=== PATIENT | male | born 2000 | race Hispanic/Latino ===

== ENCOUNTER 2020-06-20 00:11 | Emergency (ER) | payer SELFPAY ==
--- NOTE | 2020-06-20 02:18 | ER ---
Nurse's Notes [facility] Name: Dawson Cabezas Age: 20 yrs Sex: Male : 2000 Arrival Date: 06/20/2020 Time: 00:16 Bed Waiting Private MD: Diagnosis: Presentation: 06/20 01:59 Chief complaint: Patient states: Chest tightness that began last night, reports having sg shortness of breath. Coronavirus screen: Client denies travel out of the [place] in the last 14 days. Ebola Screen: Patient negative for fever greater than or equal to 101.5 degrees Fahrenheit, and additional compatible Ebola Virus Disease symptoms Patient denies exposure to infectious person. Patient denies travel to an Ebola-affected area in the 21 days before illness onset. No symptoms or risks identified at this time. Initial Sepsis Screen: Does the patient meet any 2 criteria? No. Patient's initial sepsis screen is negative. Does the patient have a suspected source of infection? No. Patient's initial sepsis screen is negative. Risk Assessment: Do you want to hurt yourself or someone else? Patient reports no desire to harm self or others. Onset of symptoms was June 20, 2020. Care prior to arrival: None. 01:59 Acuity: MARIA INES 4 sg 01:59 Method Of Arrival: Ambulatory Historical: - Allergies: 02:00 No Known Allergies; ED Course: 00:16 Patient arrived in ED. ag3 01:59 Triage completed. sg 01:59 Arm band placed on. sg 02:05 Rigo Edmondson MD is Attending Physician. suri Administered Medications: No medications were administered Outcome: 02:17 Patient left the ED. tt3 Signatures: Gerardo Goins, RN Rigo Bee MD MD cha Gomez, Alice ag3 Mike Leahy tt3
== END 2020-06-20 02:17 | disposition left against medical advice (07) ==
LOC: ER 00:11
DX: Z53.21 Procedure and treatment not carried out due to patient leaving prior to being seen by health care provider (principal)
CPT/HCPCS: 99281

== ENCOUNTER 2021-02-09 20:21 | Emergency (ER) | payer SELFPAY ==
--- OUTSIDE RECORDS SUMMARY | 2021-02-09 20:24 | XMS REPORT | Continuity of Care Document ---
:2000 Author Organization [facility] t Address [address] [place] [address] Care Team Providers Name Role Phone Unavailable Unavailable Unavailable Payers Payer Name Policy Type Policy Number Effective Date Expiration Date S ource Problems This patient has no known problems. Allergies, Adverse Reactions, Alerts Allergy Allergy Status Severity Reaction(s) Onset Inactive Treating Comm ents Source Name Type Date Date Clinician No Known DA Active U 2018-0 [facility] Allergie 01-25 Clear s 00:00: Suresh 00 [facility] No Known DA Active U 2011-0 [facility] All[facility]ie 8-12 [facility] Medications This patient has no known medications. Procedures This patient has no known procedures. Results Test Description Test Time Test Comments Results Result Comments Source HEPATIC FUNCTION PANEL 2019-04-05 07:01:00 Test Item Value Reference Range Interpretation Comme nts TOTAL PROTEIN (test code = 7.8 g/dL 6.4-8.2 N P erformed by: LUZ Villanueva PROT) [id number], [place], [place] [address]Urzmirz sly reported result: 7.8 g/dLEdited by: SHON on 04/05/19:622845 0701: DICKSON previously repo rted as: 7.8 g/dL ALBUMIN (test code = ALB) 3.70 g/dL 3.4-5.0 N BILIRUBIN TOTAL (test code 0.4 MG/DL <1.5 N = BILT) BILIRUBIN DIRECT (test 0.10 MG/DL 0.0-0.30 N code = BILD) BILIRUBIN INDIRECT (test 0.30 MG/DL code = BILIND) SGOT/AST (test code = AST) 21 IUnit/L 15-37 N SGPT/ALT (test code = ALT) 39 IUnit/L 15-65 N ALKALINE PHOSPHATASE TOTAL 101 IUnit/L 60-350 N (test code = ALKP) [id number] 07:01:00 Test Item Value Reference Range Interpretation Comments LIPASE (test code = LIP) 120 IUnit/L 73-393 N HEPATIC FUNCTION [id number] 07:01:00 Test Item Value Reference Range Interpretation Comments TOTAL PROTEIN (test 7.8 g/dL 6.4-8.2 N Performe d by: [facility] code = PROT) [place] [address] [place], [place] [address]Pvyawuwovr reported result : 7.8 g/dLEdited by: SHON on 04/05/19:841773 9 0701: T.PROT previously repo rted as: 7.8 g/dL ALBUMIN (test code = 3.70 g/dL 3.4-5.0 N ALB) BILIRUBIN TOTAL (test 0.4 MG/DL <1.5 N code = BILT) BILIRUBIN DIRECT (test 0.10 MG/DL 0.0-0.30 N code = BILD) BILIRUBIN INDIRECT 0.30 MG/DL (test code = BILIND) SGOT/AST (test code = 21 IUnit/L 15-37 N AST) SGPT/ALT (test code = 39 IUnit/L 15-65 N ALT) ALKALINE PHOSPHATASE 101 IUnit/L 60-350 N TOTAL (test code = ALKP) [id number] 07:01:00 Test Item Value Reference Range Interpretation Comments LIPASE (test code = LIP) 120 IUnit/L 73-393 N HEPATIC FUNCTION [id number] 06:59:00 Test Item Value Reference Range Interpretation Comments TOTAL PROTEIN (test code = PROT) 7.8 g/dL 6.4-8.2 N ALBUMIN (test code = ALB) 3.70 g/dL 3.4-5.0 N BILIRUBIN TOTAL (test code = 0.4 MG/DL <1.5 N BILT) BILIRUBIN DIRECT (test code = 0.10 MG/DL 0.0-0.30 N BILD) BILIRUBIN INDIRECT (test code = 0.30 MG/DL BILIND) SGOT/AST (test code = AST) 21 IUnit/L 15-37 N SGPT/ALT (test code = ALT) 39 IUnit/L 15-65 N ALKALINE PHOSPHATASE TOTAL (test 101 IUnit/L 60-350 N code = ALKP) [id number] 06:59:00 Test Item Value Reference Range Interpretation Comments LIPASE (test code = LIP) 120 IUnit/L 73-393 N HEPATIC FUNCTION [id number] 06:59:00 Test Item Value Reference Range Interpretation Comments TOTAL PROTEIN (test code = PROT) 7.8 g/dL 6.4-8.2 N ALBUMIN (test code = ALB) 3.70 g/dL 3.4-5.0 N BILIRUBIN TOTAL (test code = 0.4 MG/DL <1.5 N BILT) BILIRUBIN DIRECT (test code = 0.10 MG/DL 0.0-0.30 N BILD) BILIRUBIN INDIRECT (test code = 0.30 MG/DL BILIND) SGOT/AST (test code = AST) 21 IUnit/L 15-37 N SGPT/ALT (test code = ALT) 39 IUnit/L 15-65 N ALKALINE PHOSPHATASE TOTAL (test 101 IUnit/L 60-350 N code = ALKP) [id number] 06:59:00 Test Item Value Reference Range Interpretation Comments LIPASE (test code = LIP) 120 IUnit/L 73-393 N CBC W/AUTO [id number] 14:59:00 Test Item Value Reference Range Interpretation Comments WHITE BLOOD CELL (test code = WBC) 7.60 k/mm3 4.00-12.00 N RED BLOOD CELL (test code = RBC) 5.51 M/uL 4.00-5.60 N HEMOGLOBIN (test code = HGB) 17.0 GM/DL 12.5-16.9 H HEMATOCRIT (test code = HCT) 48.1 % 40.0-54.0 N MEAN CELL VOLUME (test code = MCV) 87.3 fL 81.0-99.0 N MEAN CELL HGB (test code = MCH) 30.9 pg 27.0-31.0 N MEAN CELL HGB CONCETRATION (test 35.3 GM/DL 33.0-37.0 N code = MCHC) RED CELL DISTRIBUTION WIDTH CV 13.7 % 11.5-14.5 N (test code = RDW) RED CELL DISTRIBUTION WIDTH SD 42.9 % 37.0-54.0 N (test code = RDW-SD) PLATELET COUNT (test code = PLT) 212 K/mm3 150-400 N NEUTROPHIL % (test code = NT%) 67.0 % 34.0-64.0 H LYMPHOCYTE % (test code = LY%) 26.4 % 25.0-45.0 N MIXED % (test code = MX%) 6.6 % 3.0-15.0 N NEUTROPHIL # (test code = NT#) 5.1 K/uL 1.8-7.6 N LYMPHOCYTE # (test code = LY#) 2.0 K/uL 1.0-3.8 N MIXED # (test code = MX#) 0.5 k/mm3 0.1-0.8 N - CT ABD PELVIS [id number] 13:57:00 Name: VICTORIANO VILLASENOR Alsey FSED : 2000 Age/S: 18 / M Unit #: [id number] Loc: [place], [place] Phys: Nohemy Ac MD Acct: [id number] Dis Date: Status: REG ER PHONE #: Exam Date: 03/27/2019 1331 FAX #: Reason: RLQ pain EXAMS: CPTCODE: [id number] CT ABD PELVIS W/CONT 95178 EXAM: CT ABDOMEN AND PELVIS WITH CONTRAST DATE: 03/27/2019 12:56 PM : 2000; Age: 18 years y/o Male INDICATION: RLQ pain COMPARISON: None. TECHNIQUE: Volumetric CT of the abdomen and pelvis is acquired following the intravenous administration of contrast. Axial, coronal and sagittal images are provided. IV contrast: 100 mL Isovue Enteric contrast: None. DLP: 1163 mGy-cm CT imaging performed at this location utilizes radiation dose optimization techniques which include one or more of the following: - Automated exposure control -Adjustment of the mA and/or kV according to patient size -Use of iterative reconstruction technique FINDINGS: Lower thorax: Clear. Liver: Normal. Gallbladder: No calcified stones or wall thickening. Adrenals: Normal. Kidneys and ureters: Normal. Spleen: Normal. Pancreas: Normal. Visualized Gastrointestinal tract: Stomach is normal. No significant small bowel dilatation. Appendix is normal. Fatty proliferation is noted involving the hepatic flexure colonic wall with adjacent haziness of the fat. No bowel obstruction. Peritoneum, mesentery and retroperitoneum: Tiny mesenteric nodes. No drainable abscess. No ascites. PAGE 1 Signed Report (CONTINUED) Name: VICTORIANO VILLASENOR Alsey FSED : 2000 Age/S: 18 / M Unit #: [id number] Loc: [place], [place] Phys: Nohemy Ac MD Acct: [id number] Dis Date: Status: REG ER PHONE #: Exam Date: 03/27/2019 133 FAX #: Reason: RLQ pain EXAMS: CPT CODE: [id number] CT ABD PELVIS W/CONT 81516 <Continued> Reproductive organs: Prostate and seminal vesicles are unremarkable. Bladder: Normal. Soft tissues: Normal. Bones: No acute abnormality. Moderate disc space narrowing at T10- T11 level. IMPRESSION: 1. Fatty proliferation is noted involving the hepatic flexure colonic wallwith adjacent haziness of the fat. Findings may represent subtle acute on chronic inflammatory process involving the hepatic flexure. 2. Normal appendix. 3. Moderate disc space narrowing at T10-T11 level. SL: [id number] at 1357 Reported and signed by: Simon Burk D.O. CC: Nohemy Ac MD Technologist:RT Socorro(R)(CT) CTDI: DLP: Trnscb Date/Time: 03/27/2019 (1357) [email or web address] Orig Print D/T: S: 03/27/2019 (1400) PAGE 2 Signed ReportCREATINALEXI [id number] 12:54:00 Test Item Value Reference Range Interpretation Comments CREATININE ABG (test code = CREAABG) mg/dL 0.8-1.3 [id number] 12:54:00 Test Item Value Reference Range Interpretation Comments HEMOGLOBIN (test code = HGB/ABG) G/DL 12.5-16.9 [id number] 12:54:00 Test Item Value Reference Range Interpretation Comments HEMATOCRIT (test code = HCT/ABG) % 37.5-50.7 POC IONIZED [id number] 12:54:00 Test Item Value Reference Range Interpretation Comments POC IONIZED CALCIUM (test code = MMOL/L 1.12-1.32 POCCA) POC [id number] 12:54:00 Test Item Value Reference Range Interpretation Comments POC GLUCOSE (test code = POCGLU) MG/DL 70-110 [id number] 12:54:00 Test Item Value Reference Range Interpretation Comments SODIUM (test code = NA/ABG) 143 MEQ/L 134-147 N [id number] 12:54:00 Test Item Value Reference Range Interpretation Comments POTASSIUM (test code = K/ABG) 3.7 MEQ/L 3.4-5.0 N [id number] 12:54:00 Test Item Value Reference Range Interpretation Comments CHLORIDE (test code = CL/ABG) MEQ/L 100-108 CREATININE [id number] 12:54:00 Test Item Value Reference Range Interpretation Comments CREATININE ABG (test code = CREAABG) mg/dL 0.8-1.3 [id number] 12:54:00 Test Item Value Reference Range Interpretation Comments HEMOGLOBIN (test code = HGB/ABG) G/DL 12.5-16.9 [id number] 12:54:00 Test Item Value Reference Range Interpretation Comments HEMATOCRIT (test code = HCT/ABG) % 37.5-50.7 POC IONIZED [id number] 12:54:00 Test Item Value Reference Range Interpretation Comments POC IONIZED CALCIUM (test code = MMOL/L 1.12-1.32 POCCA) POC [id number] 12:54:00 Test Item Value Reference Range Interpretation Comments POC GLUCOSE (test code = POCGLU) MG/DL 70-110 [id number] 12:54:00 Test Item Value Reference Range Interpretation Comments SODIUM (test code = NA/ABG) 143 MEQ/L 134-147 N [id number] 12:54:00 Test Item Value Reference Range Interpretation Comments POTASSIUM (test code = K/ABG) 3.7 MEQ/L 3.4-5.0 N [id number] 12:54:00 Test Item Value Reference Range Interpretation Comments CHLORIDE (test code = CL/ABG) MEQ/L 100-108 CREATININE [id number] 12:54:00 Test Item Value Reference Range Interpretation Comments CREATININE ABG (test code = CREAABG) mg/dL 0.8-1.3 [id number] 12:54:00 Test Item Value Reference Range Interpretation Comments HEMOGLOBIN (test code = HGB/ABG) G/DL 12.5-16.9 [id number] 12:54:00 Test Item Value Reference Range Interpretation Comments HEMATOCRIT (test code = HCT/ABG) % 37.5-50.7 POC IONIZED [id number] 12:54:00 Test Item Value Reference Range Interpretation Comments POC IONIZED CALCIUM (test code = 1.22 MMOL/L 1.12-1.32 N POCCA) POC [id number] 12:54:00 Test Item Value Reference Range Interpretation Comments POC GLUCOSE (test code = POCGLU) MG/DL 70-110 [id number] 12:54:00 Test Item Value Reference Range Interpretation Comments SODIUM (test code = NA/ABG) 143 MEQ/L 134-147 N [id number] 12:54:00 Test Item Value Reference Range Interpretation Comments POTASSIUM (test code = K/ABG) 3.7 MEQ/L 3.4-5.0 N [id number] 12:54:00 Test Item Value Reference Range Interpretation Comments CHLORIDE (test code = CL/ABG) MEQ/L 100-108 CREATININE [id number] 12:54:00 Test Item Value Reference Range Interpretation Comments CREATININE ABG (test code = CREAABG) mg/dL 0.8-1.3 [id number] 12:54:00 Test Item Value Reference Range Interpretation Comments HEMOGLOBIN (test code = HGB/ABG) G/DL 12.5-16.9 [id number] 12:54:00 Test Item Value Reference Range Interpretation Comments HEMATOCRIT (test code = HCT/ABG) % 37.5-50.7 POC IONIZED [id number] 12:54:00 Test Item Value Reference Range Interpretation Comments POC IONIZED CALCIUM (test code = 1.22 MMOL/L 1.12-1.32 N POCCA) POC [id number] 12:54:00 Test Item Value Reference Range Interpretation Comments POC GLUCOSE (test code = POCGLU) 113 MG/DL 70-110 H [id number] 12:54:00 Test Item Value Reference Range Interpretation Comments SODIUM (test code = NA/ABG) 143 MEQ/L 134-147 N [id number] 12:54:00 Test Item Value Reference Range Interpretation Comments POTASSIUM (test code = K/ABG) 3.7 MEQ/L 3.4-5.0 N [id number] 12:54:00 Test Item Value Reference Range Interpretation Comments CHLORIDE (test code = CL/ABG) MEQ/L 100-108 CREATININE [id number] 12:54:00 Test Item Value Reference Range Interpretation Comments CREATININE ABG (test code = CREAABG) mg/dL 0.8-1.3 [id number] 12:54:00 Test Item Value Reference Range Interpretation Comments HEMOGLOBIN (test code = HGB/ABG) G/DL 12.5-16.9 [id number] 12:54:00 Test Item Value Reference Range Interpretation Comments HEMATOCRIT (test code = HCT/ABG) 49 % 37.5-50.7 N POC IONIZED [id number] 12:54:00 Test Item Value Reference Range Interpretation Comments POC IONIZED CALCIUM (test code = 1.22 MMOL/L 1.12-1.32 N POCCA) POC [id number] 12:54:00 Test Item Value Reference Range Interpretation Comments POC GLUCOSE (test code = POCGLU) 113 MG/DL 70-110 H [id number] 12:54:00 Test Item Value Reference Range Interpretation Comments SODIUM (test code = NA/ABG) 143 MEQ/L 134-147 N [id number] 12:54:00 Test Item Value Reference Range Interpretation Comments POTASSIUM (test code = K/ABG) 3.7 MEQ/L 3.4-5.0 N [id number] 12:54:00 Test Item Value Reference Range Interpretation Comments CHLORIDE (test code = CL/ABG) MEQ/L 100-108 CREATININE [id number] 12:54:00 Test Item Value Reference Range Interpretation Comments CREATININE ABG (test code = CREAABG) mg/dL 0.8-1.3 [id number] 12:54:00 Test Item Value Reference Range Interpretation Comments HEMOGLOBIN (test code = HGB/ABG) 16.6 G/DL 12.5-16.9 N [id number] 12:54:00 Test Item Value Reference Range Interpretation Comments HEMATOCRIT (test code = HCT/ABG) 49 % 37.5-50.7 N POC IONIZED [id number] 12:54:00 Test Item Value Reference Range Interpretation Comments POC IONIZED CALCIUM (test code = 1.22 MMOL/L 1.12-1.32 N POCCA) POC [id number] 12:54:00 Test Item Value Reference Range Interpretation Comments POC GLUCOSE (test code = POCGLU) 113 MG/DL 70-110 H [id number] 12:54:00 Test Item Value Reference Range Interpretation Comments SODIUM (test code = NA/ABG) 143 MEQ/L 134-147 N [id number] 12:54:00 Test Item Value Reference Range Interpretation Comments POTASSIUM (test code = K/ABG) 3.7 MEQ/L 3.4-5.0 N [id number] 12:54:00 Test Item Value Reference Range Interpretation Comments CHLORIDE (test code = CL/ABG) 106 MEQ/L 100-108 N CREATININE [id number] 12:54:00 Test Item Value Reference Range Interpretation Comments CREATININE ABG (test code = CREAABG) mg/dL 0.8-1.3 [id number] 12:54:00 Test Item Value Reference Range Interpretation Comments HEMOGLOBIN (test code = HGB/ABG) 16.6 G/DL 12.5-16.9 N [id number] 12:54:00 Test Item Value Reference Range Interpretation Comments HEMATOCRIT (test code = HCT/ABG) 49 % 37.5-50.7 N POC IONIZED [id number] 12:54:00 Test Item Value Reference Range Interpretation Comments POC IONIZED CALCIUM (test code = 1.22 MMOL/L 1.12-1.32 N POCCA) POC [id number] 12:54:00 Test Item Value Reference Range Interpretation Comments POC GLUCOSE (test code = POCGLU) 113 MG/DL 70-110 H [id number] 12:54:00 Test Item Value Reference Range Interpretation Comments SODIUM (test code = NA/ABG) 143 MEQ/L 134-147 N [id number] 12:54:00 Test Item Value Reference Range Interpretation Comments POTASSIUM (test code = K/ABG) 3.7 MEQ/L 3.4-5.0 N [id number] 12:54:00 Test Item Value Reference Range Interpretation Comments CHLORIDE (test code = CL/ABG) 106 MEQ/L 100-108 N CREATININE [id number] 12:54:00 Test Item Value Reference Range Interpretation Comments CREATININE ABG (test code = 0.9 mg/dL 0.8-1.3 N CREAABG) [id number] 12:54:00 Test Item Value Reference Range Interpretation Comments HEMOGLOBIN (test code = HGB/ABG) 16.6 G/DL 12.5-16.9 N [id number] 12:54:00 Test Item Value Reference Range Interpretation Comments HEMATOCRIT (test code = HCT/ABG) 49 % 37.5-50.7 N POC IONIZED [id number] 12:54:00 Test Item Value Reference Range Interpretation Comments POC IONIZED CALCIUM (test code = 1.22 MMOL/L 1.12-1.32 N POCCA) POC [id number] 12:54:00 Test Item Value Reference Range Interpretation Comments POC GLUCOSE (test code = POCGLU) 113 MG/DL 70-110 H [id number] 12:54:00 Test Item Value Reference Range Interpretation Comments SODIUM (test code = NA/ABG) 143 MEQ/L 134-147 N [id number] 12:54:00 Test Item Value Reference Range Interpretation Comments POTASSIUM (test code = K/ABG) MEQ/L 3.4-5.0 [id number] 12:54:00 Test Item Value Reference Range Interpretation Comments CHLORIDE (test code = CL/ABG) MEQ/L 100-108 - XR CHEST 2 [id number] 03:36:00 FAX: Gerardo Schroeder MD [phone] [place]: St: REG Name: VICTORIANO VILLASENOR [facility] : 2000 Age/S: 18/M [address] [facility] Unit#: [id number] Loc: [address] Phys: [place] [id number] Acct: [id number] Dis Date: Status: REG ER PHONE #: [phone] Exam Date: 01/25/2019 031 FAX #: [phone] Reason: chest pain EXAMS: CPT CODE: [id number] XR CHEST 2 V [id number] EXAM: - XR CHEST 2 V HISTORY: Chest pain. COMPARISON: October 31, 2017. FINDINGS: PA and lateral view of the chest is provided. Heart size and vascularity are within normal limits. The lungs are clear of focal consolidation. No effusion, pneumothorax, or acute osseous abnormality. IMPRESSION: No radiographic evidence of acute cardiopulmonary process. at 0336 Reported and signed by: Alvaro Carcamo M.D. CC: Gerardo Schroeder MD Technologist: MECHE DEL TORO Trnscrd Date/Time/By: 01/25/2019 (0336) : By: [email or web address] PAGE 1 Signed Report FAX: Gerardo Schroeder MD [phone] [place]: St: REG ---- Name: VICTORIANO VILLASENOR [facility] : 2000 Age/S: 18/M [address] [email or web address] Unit #: [id number] Loc: E.ERS2 [place], [place] Phys: Gerardo Schroeder [place] [id number]: [id number] Dis Date: Status: REG ER PHONE #: [phone] Exam Date: 01/25/2019 0311 FAX #: [phone] Reason: chest pain EXAMS: CPT CODE: [id number] XR CHEST 2 V [id number] <Continued> Orig Print D/T: S: 01/25/2019 (0339) PAGE 2 Signed ReportDRUGS OF ABUSE SCREEN [id number] 00:57:00 Test Item Value Reference Range Interpretation Comments URN COCAINE (test code NEGATIVE NEGATIVE Cocai ne cut-off = COCAURN) concentration: 300 ng/mL URN CANNABINOIDS (test NEGATIVE NEGATIVE Canna binoids cut-off code = CANNABURN) concentrat ion: 50 ng/mL URN AMPHETAMINE (test NEGATIVE NEGATIVE Amphet amine cut-off code = AMPHETURN) concentrat ion: 1000 ng/mL URN BARBITURATE (test NEGATIVE NEGATIVE Barbit urate cut-off code = BARBITURN) concentrat ion: 200 ng/mL URN BENZODIAZEPINE NEGATIVE NEGATIVE Benzodiaz epine cut-off (test code = BENZOURN) constantino ntration: 200 ng/mL URN OPIATES (test code NEGATIVE NEGATIVE Opiat es cut-off = OPIATURN) concentration: 200 ng/mL URN PHENCYCLIDINE (PCP) NEGATIVE NEGATIVE Phen cyclidine(PCP) (test code = PHENCURN) cut-o ff concentration: 25 ng/ml URN METHADONE (test NEGATIVE NEGATIVE Methadon e cut-off code = METHAURN) concentrati on: 300 ng/mL URINALYSIS [id number] 00:40:00 Test Item Value Reference Range Interpretation Comments UA COLOR (test code = COLU) YELLOW UA APPEARANCE (test code = CLEAR APPU) UA GLUCOSE DIPSTICK (test NORMAL mg/dl NORMAL code = DGLUU) UA BILIRUBIN DIPSTICK (test NEGATIVE mg/dL NEGATIVE code = BILU) UA KETONE DIPSTICK (test 15 mg/dl mg/dl NEGATIVE A code = KETU) UA SPECIFIC GRAVITY (test 1.020 1.000-1.030 code = SGU) UA BLOOD DIPSTICK (test NEGATIVE Robert/micL NEGATIVE code = RAMSES) UA PH DIPSTICK (test code = 5.0 5.0-9.0 ЕЛЕНА) UA PROTEIN DIPSTICK (test 15 mg/dl mg/dl NEGATIVE A code = PROU) UA UROBILINIOGEN DIPSTICK NORMAL mg/dl NORMAL (test code = URO) UA NITRITE DIPSTICK (test NEGATIVE NEGATIVE code = JONELLE) UA LEUKOCYTE ESTERASE NEGATIVE Serge/micL NEGATIVE DIPSTICK (test code = LEUU) UA WBC (test code = WBCU) 0-3 WBC/HPF NONE UA RBC (test code = RBCU) 0-2 RBC/HPF 0-3 UA EPITHELIAL CELLS (test 0-3 EPI/HPF 0-3 code = EPIU) UA BACTERIA (test code = FEW NONE BACU) UA MUCUS (test code = MUCU) 1+ URINALYSIS [id number] 00:32:00 Test Item Value Reference Range Interpretation Comments UA COLOR (test code = COLU) YELLOW UA APPEARANCE (test code = CLEAR APPU) UA GLUCOSE DIPSTICK (test NORMAL mg/dl NORMAL code = DGLUU) UA BILIRUBIN DIPSTICK (test NEGATIVE mg/dL NEGATIVE code = BILU) UA KETONE DIPSTICK (test 15 mg/dl mg/dl NEGATIVE A code = KETU) UA SPECIFIC GRAVITY (test 1.020 1.000-1.030 code = SGU) UA BLOOD DIPSTICK (test NEGATIVE Robert/micL NEGATIVE code = RAMSES) UA PH DIPSTICK (test code = 5.0 5.0-9.0 ЕЛЕНА) UA PROTEIN DIPSTICK (test 15 mg/dl mg/dl NEGATIVE A code = PROU) UA UROBILINIOGEN DIPSTICK NORMAL mg/dl NORMAL (test code = URO) UA NITRITE DIPSTICK (test NEGATIVE NEGATIVE code = JONELLE) UA LEUKOCYTE ESTERASE NEGATIVE Serge/micL NEGATIVE DIPSTICK (test code = LEUU) UA WBC (test code = WBCU) WBC/HPF NONE UA RBC (test code = RBCU) RBC/HPF 0-3 UA EPITHELIAL CELLS (test EPI/HPF 0-3 code = EPIU) UA BACTERIA (test code = NONE BACU)
[2021-02-09 22:30] LABS: Absolute Lymphocytes (CBC) 3.5 K/uL (0.7-4.9); Basophils % 0.5 % (0-1.3); Hematocrit 41.2 % (39.6-49.0); Lymphocytes % 32.5 % (15.3-44.8); MPV 8.7 fL (7.6-11.3); RBC Red Blood Cell Count 4.78 M/uL (4.33-5.43)
[2021-02-09 22:36] LABS: Protime INR 1.09
[2021-02-09 22:51] LABS: ALT/SGPT 31 U/L (12-78); AST/SGOT 21 U/L (15-37); Alkaline Phosphatase 99 U/L (45-117); BUN Blood Urea Nitrogen 14 mg/dL (7-18); Bicarbonate 28 mmol/L (21-32); Bilirubin Direct < 0.1 mg/dL (0-0.2); Bilirubin Total 0.4 mg/dL (0.2-1.0); Glucose Level 89 mg/dL (74-106); Magnesium 2.1 mg/dL (1.8-2.4); Potassium 3.6 mmol/L (3.5-5.1); Protein, Total 7.9 g/dL (6.4-8.2); Sodium Level 141 mmol/L (136-145); Troponin (Emerg Dept Use Only) < 0.02 ng/mL (0.0-0.045)
[2021-02-09 23:21] LABS: NT PRO-BNP < 5 pg/mL (<125)
--- NOTE | 2021-02-10 00:29 | EDPHYS ---
Physician Documentation [facility] Name: Dawson Cabezas Age: 20 yrs Sex: Male : 2000 Arrival Date: 02/09/2021 Time: 20:24 Bed 17 Private MD: ED Physician Deshaun Ramos HPI: 02/10 00:20 This 20 yrs old Male presents to ER via Ambulatory with complaints of Chest pkl Pain, Neck Pain, >24Hrs Old, Shoulder Pain. 00:20 The patient or guardian reports chest pain that is located primarily in the substernal pkl area. Associated signs and symptoms: Pertinent positives: neck pain. The chest pain is described as dull. Historical: - Allergies: 02/09 22:06 No Known Allergies; kg - Home Meds: 22:06 None [Active]; kg - PMHx: 22:06 None; kg - PSHx: 22:06 double mastectomy; kg - Immunization history:: Adult Immunizations not up to date, Client reports having NOT received the Covid vaccine. - Social history:: Smoking status: Reported history of juuling and/or vaping. ROS: 02/10 00:20 Eyes: Negative for injury, pain, redness, and discharge, ENT: Negative for injury, pkl pain, and discharge. Neck: Positive for pain with movement. Cardiovascular: Positive for chest pain. Respiratory: Negative for cough, shortness of breath. Abdomen/GI: Negative for abdominal pain, nausea, vomiting, and diarrhea. Back: Negative for acute changes. : Negative for urinary symptoms. MS/extremity: Negative for acute changes. Skin: Negative for rash. Neuro: Negative for altered mental status, loss of consciousness. Exam: 00:20 Head/Face: Normocephalic, atraumatic. Eyes: Pupils equal round and reactive to light, pkl extra-ocular motions intact. Lids and lashes normal. Conjunctiva and sclera are non-icteric and not injected. Cornea within normal limits. Periorbital areas with no swelling, redness, or edema. ENT: Nares patent. No nasal discharge, no septal abnormalities noted. Tympanic membranes are normal and external auditory canals are clear. Oropharynx with no redness, swelling, or masses, exudates, or evidence of obstruction, uvula midline. Mucous membranes moist. 00:20 Neck: ROM/movement: pain, that is mild, with rotation to the left. 00:20 Chest/axilla: Exam negative for acute changes. 00:20 Cardiovascular: Rate: normal, Rhythm: regular. 00:20 ECG was reviewed by the Attending Physician. 00:20 Respiratory: the patient does not display signs of respiratory distress, Respirations: normal, Breath sounds: are clear throughout. 00:20 Abdomen/GI: Exam negative for acute changes. 00:24 Back: Exam negative for acute changes. pkl 00:24 : Exam negative for acute changes. 00:24 Musculoskeletal/extremity: Exam is negative for acute changes. 00:24 Skin: Exam negative for rash. 00:24 Neuro: Orientation: is normal, Mentation: is normal, Memory: is normal, Cranial nerves: grossly normal, Cerebellar function: is grossly normal, Motor: is normal, Sensation: is normal, Gait: is steady. Vital Signs: 02/09 22:04 Pulse 84; Resp 20; Temp 97.5(TE); Pulse Ox 100% on R/A; Weight 122.47 kg (R); Height 5 kg ft. 10 in. (177.80 cm); Pain 6/10; 02/10 00:38 BP 114 / 61; Pulse 88; Resp 20; Temp 98.5; Pulse Ox 99% on R/A; ms4 02/09 22:04 Body Mass Index 38.74 (122.47 kg, 177.80 cm) kg MDM: 00:00 Patient medically screened. pkl 00:25 Data reviewed: vital signs, nurses notes, lab test result(s), EKG, radiologic studies, pkl plain films. ED course: Discussed lab, EKG and CXR with patient. Advised to follow up with PCP in 2 to 3 days. Patient understood instructions. 02/09 22:09 Order name: Basic Metabolic Panel kg 02/09 22:09 Order name: CBC with Diff; Complete Time: 00:02 kg 02/09 22:09 Order name: LFT's; Complete Time: 00:02 kg 02/09 22:09 Order name: Magnesium; Complete Time: 00:02 kg 02/09 22:09 Order name: NT PRO-BNP; Complete Time: 00:02 kg 02/09 22:09 Order name: PT-INR; Complete Time: 00:02 kg 02/09 22:09 Order name: Troponin (emerg Dept Use Only); Complete Time: 00:02 kg 02/09 22:09 Order name: XRAY Chest (1 view) kg 02/09 22:09 Order name: EKG; Complete Time: 22:09 kg 02/09 22:09 Order name: Cardiac monitoring; Complete Time: 00:34 kg 02/09 22:09 Order name: EKG - Nurse/Tech; Complete Time: 22:09 kg 02/09 22:09 Order name: IV Saline Lock; Complete Time: 22:09 kg 09 22:09 Order name: Basic Metabolic Panel; Complete Time: 00:02 EDMS 09 22:09 Order name: Labs collected and sent; Complete Time: 00:34 kg 02/09 22:09 Order name: O2 Per Protocol; Complete Time: 00:34 kg 02/09 22:09 Order name: O2 Sat Monitoring; Complete Time: 00:34 kg Administered Medications: 00:39 Drug: Ketorolac 30 mg Route: IVP; Site: left antecubital; ms4 Disposition Summary: 02/10/21 00:28 Discharge Ordered Location: Home pkl Problem: new pkl Symptoms: have improved pkl Condition: Stable pkl Diagnosis - Chest pain. Neck pain pkl Followup: pkl - With: Private Physician - When: 2 - 3 days - Reason: Re-evaluation by your physician Discharge Instructions: - Discharge Summary Sheet pkl - Form - Excuse from Work, School, or Physical Activity wg Forms: - Medication Reconciliation Form pkl - Thank You Letter pkl - Antibiotic Education pkl - Prescription Opioid Use pkl Prescriptions: - Diclofenac Sodium 75 mg Oral tablet,delayed release (DR/EC) - take 1 tablet by ORAL route 2 times per day; 20 tablet; Refills: 0, Product pkl Selection Permitted Signatures: Dispatcher [employer] Deshaun Minor MD MD pkl Armida Issa, RN RN kg Gavi Abdalla RN RN ms4
--- NOTE | 2021-02-10 00:29 | ER ---
Nurse's Notes [facility] Name: Dawson Cabezas Age: 20 yrs Sex: Male : 2000 Arrival Date: 02/09/2021 Time: 20:24 Bed 17 Private MD: Diagnosis: Chest pain. Neck pain Presentation: 02/09 22:04 Chief complaint: Patient states: Woke up at 0700 and chest was hurting then an hour kg later left shoulder and neck hurting and chest, shoulder, and neck have been hurting ever since. Coronavirus screen: Vaccine status: Patient reports being unvaccinated. Client denies travel out of the [place] in the last 14 days. Ebola Screen: Patient negative for fever greater than or equal to 101.5 degrees Fahrenheit, and additional compatible Ebola Virus Disease symptoms Patient denies exposure to infectious person. Patient denies travel to an Ebola-affected area in the 21 days before illness onset. Initial Sepsis Screen: Does the patient meet any 2 criteria? Does the patient have a suspected source of infection? No. Patient's initial sepsis screen is negative. Risk Assessment: Do you want to hurt yourself or someone else? Patient reports no desire to harm self or others. Onset of symptoms was February 09, 2021 at 07:00. 22:04 Method Of Arrival: Ambulatory kg 22:04 Acuity: MARIA INES 4 kg Triage Assessment: 22:06 General: Appears in no apparent distress. Behavior is calm, cooperative, appropriate kg for age, quiet. Pain: Complains of pain in chest Pain currently is 7 out of 10 on a pain scale. at worst was 8 out of 10 on a pain scale. level that patient reports is acceptable is 3 out of 10 on a pain scale. Quality of pain is described as stabbing, squeezing. Cardiovascular: Chest pain is described as mild, quality is squeezing, is located in left anterior began 1 day ago episodes are continuous. Respiratory: No deficits noted. GI: No deficits noted. : No deficits noted. Derm: No deficits noted. Musculoskeletal: No deficits noted. Historical: - Allergies: 22:06 No Known Allergies; kg - Home Meds: 22:06 None [Active]; kg - PMHx: 22:06 None; kg - PSHx: 22:06 double mastectomy; kg - Immunization history:: Adult Immunizations not up to date, Client reports having NOT received the Covid vaccine. - Social history:: Smoking status: Reported history of juuling and/or vaping. Screenin/07 00:38 Abuse screen: Denies threats or abuse. Denies injuries from another. Nutritional ms4 screening: No deficits noted. Tuberculosis screening: No symptoms or risk factors identified. Fall Risk None identified. Assessment: 00:38 Pain: Pain does not radiate. Pain began suddenly. ms4 Vital Signs: 02/09 22:04 Pulse 84; Resp 20; Temp 97.5(TE); Pulse Ox 100% on R/A; Weight 122.47 kg (R); Height 5 kg ft. 10 in. (177.80 cm); Pain 11/13; 02/10 00:38 BP 114 / 61; Pulse 88; Resp 20; Temp 98.5; Pulse Ox 99% on R/A; ms4 02/09 22:04 Body Mass Index 38.74 (122.47 kg, 177.80 cm) kg ED Course: 02/09 20:24 Patient arrived in ED. cf2 22:06 Triage completed. kg 22:14 EKG done, by ED staff, reviewed by Deshaun Ramos MD. tt3 23:00 XRAY Chest (1 view) In Process Unspecified. EDMS 02/10 00:00 Deshaun Ramos MD is Attending Physician. pkl 00:34 Basic Metabolic Panel Sent. ms4 00:38 Patient has correct armband on for positive identification. satellite project site monitor on. ms4 00:39 No provider procedures requiring assistance completed. Patient maintains SpO2 ms4 saturation greater than 95% on room air. Administered Medications: 00:39 Drug: Ketorolac 30 mg Route: IVP; Site: left antecubital; ms4 Outcome: 00:28 Discharge ordered by . pkl 00:58 Discharged to home ambulatory. eb1 00:58 Condition: stable 00:58 Discharge instructions given to patient, Instructed on discharge instructions, Demonstrated understanding of follow-up care, medications, Prescriptions given X 1. 01:04 Patient left the ED. wr Signatures: Dispatcher [employer] EDMS Deshaun Ramos MD MD pkl Gwendolyn Vang RN RN eb1 Doe Kerr cf2 Mike Leahy tt3 Armida Issa RN RN kg Gavi Abdalla RN RN ms4 Estella Mcintosh wr
[2021-02-10] MEDS ORDERED: KETOROLAC 30 MG/ML INJ ONE (00:59)
[2021-02-10 01:10] VITALS: BP 114/61; TEMP 98.5; O2SAT 99
--- NOTE | 2021-02-10 07:32 | RAD REPORT ---
EXAM DESCRIPTION: RAD - Chest Single View - 02/09/2021 11:00 pm CLINICAL HISTORY: PAIN COMPARISON: No comparisons FINDINGS: Lines: None. Lungs: No evidence of edema or pneumonia. Pleural: No significant pleural effusions or pneumothorax. Cardiac: The heart size is within normal limits. Bones: No acute fractures. Other: IMPRESSION: No acute cardiopulmonary disease.
--- NOTE | 2021-02-10 10:55 | EKG ---
Test Date: 2021-02-09 Test Time: 22:12:22 Relay Worker: TLT MEASUREMENT RESULTS: Intervals: Rate: 82 TN: 160 QRSD: 98 QT: 352 QTc: 411 [place]: P: 34 TN: 160 QRS: 37 T: 31 INTERPRETIVE STATEMENTS: Normal sinus rhythm ST elevation, consider early repolarization, pericarditis, or injury Abnormal ECG No previous ECG available for comparison Electronically Signed On 02-10-21 10:53:59 CDT by Akash Maldonado
== END 2021-02-10 01:04 | disposition home or self-care (01) ==
LOC: ER 20:21
DX: R07.9 Chest pain, unspecified (principal); M54.2 Cervicalgia
CPT/HCPCS: 36415; 71045; 80048; 80076; 83735; 83880; 84484; 85025; 85610; 93005; 96374; 99285

== ENCOUNTER 2021-06-07 09:59 | Emergency (ER) | payer BC, SELFPAY ==
--- OUTSIDE RECORDS SUMMARY | 2021-06-07 10:02 | XMS REPORT | Continuity of Care Document ---
:2000 Author Organization [facility] t Address [address] [place] [address] Care Team Providers Name Role Phone Mariana LÓPEZ Attending Clinician Unavailable Mariana LÓPEZ Admitting Clinician Unavailable Payers Payer Name Policy Type Policy Number Effective Date Expiration Date S [facility] [id number] 2014 00:00:00 2018 00:00:00 Problems This patient has no known problems. Allergies, Adverse Reactions, Alerts Allergy Allergy Status Severity Reaction(s) Onset Inactive Treating Comm ents Source Name Type Date Date Clinician No Known DA Active [facility] 01-25 Clear s 00:00: Suresh 00 [facility] No Known DA Active [facility] Allergie 8-12 [place] s 00:00: d 00 [facility] NO KNOWN Drug Active [facility] Medications This patient has no known medications. Procedures This patient has no known procedures. Encounters Start End Encounter Admission Attending Care Care Encounter Source Date/Time Date/Time Type Type Clinicians Facility Department ID 2015-08-04 2015-08-04 Outpatient AGUSTO DIETRICH DSU [id number] [facility] 11:16:06 19:27:00 PRERNA kuo [facility] Results Test Description Test Time Test Comments Results Result Comments Source HEPATIC FUNCTION PANEL 2019-04-05 07:01:00 Test Item Value Reference Range Interpretation Comme nts TOTAL PROTEIN (test code = 7.8 g/dL 6.4-8.2 N P erformed by: LUZ [facility] PROT) [place] [address] [address] [place], [place] [address]Cjzfrus sly reported result: 7.8 g/dLEdited by: COURTNEYTXP on 04/05/19: 0701: T.PROT previously repo rted as: 7.8 [...] IUnit/L 60-350 N (test code = ALKP) [id number] 07:01:00 Test Item Value Reference Range Interpretation Comments LIPASE (test code = LIP) 120 IUnit/L 73-393 N HEPATIC FUNCTION [id number] 07:01:00 Test Item Value Reference Range Interpretation Comments TOTAL PROTEIN (test 7.8 g/dL 6.4-8.2 N Performe d by: [facility] code = PROT) [facility] are [place] [address] [place], [place] [address]Yxdablgxic reported result : 7.8 g/dLEdited by: AVELINOP on 04/05/19: 9 0701: T.PROT previously repo rted as: [...] 60-350 N TOTAL (test code = ALKP) [id number] 07:01:00 Test Item Value Reference Range Interpretation Comments LIPASE (test code = LIP) 120 IUnit/L 73-393 N HEPATIC FUNCTION [id number] 06:59:00 Test Item Value Reference Range Interpretation [...] 101 IUnit/L 60-350 N code = ALKP) [id number] 06:59:00 Test Item Value Reference Range Interpretation Comments LIPASE (test code = LIP) 120 IUnit/L 73-393 N HEPATIC FUNCTION [id number] 06:59:00 Test Item Value Reference Range Interpretation [...] 101 IUnit/L 60-350 N code = ALKP) [id number] 06:59:00 Test Item Value Reference Range Interpretation Comments LIPASE (test code = LIP) 120 IUnit/L 73-393 N CBC W/AUTO [id number] 14:59:00 Test Item Value Reference Range Interpretation [...] k/mm3 0.1-0.8 N - CT ABD PELVIS [id number] 13:57:00 Name: VICTORIANO VILLASENOR Holland FSED : 2000 Age/S: 18 / M Unit #: [id number] Loc: [place], [place] Phys: Nohemy Ac MD Acct: [id number] Dis Date: Status: REG ER PHONE #: Exam Date: 03/27/2019 1338 FAX #: Reason: RLQ pain EXAMS: CPTCODE: [id number] CT ABD PELVIS W/CONT 92950 EXAM: CT ABDOMEN AND PELVIS WITH CONTRAST [...] 1 Signed Report (CONTINUED) Name: VICTORIANO VILLASENOR [place] FSED : 2000 Age/S: 18 / M Unit #: [id number] Loc: [place] Phys: Nohemy Ac MD Acct: [id number] Dis Date: Status: REG ER PHONE #: Exam Date: 03/27/2019 1338 FAX #: Reason: RLQ pain EXAMS: CPT CODE: [id number] CT ABD PELVIS W/CONT 19555 <Continued> Reproductive organs: Prostate and seminal vesicles [...] disc space narrowing at T10-T11 level. SL: [id number] at 1357 Reported and signed by: Simon Burk D.O. CC: Nohemy Ac MD Technologist:RT Socorro(R)(CT) CTDI: DLP: Trnscb Date/Time: 03/27/2019 (1357) t.[email or web address] Orig Print D/T: S: 03/27/2019 (1813) PAGE 2 Signed [id number] 12:54:00 Test Item Value Reference Range Interpretation Comments SODIUM (test code = NA/ABG) 143 MEQ/L 134-147 N [id number] 12:54:00 Test Item Value Reference Range Interpretation Comments POTASSIUM (test code = K/ABG) MEQ/L 3.4-5.0 [id number] 12:54:00 Test Item Value Reference Range Interpretation Comments CHLORIDE (test code = CL/ABG) MEQ/L 100-108 CREATININE [id number] 12:54:00 Test Item Value Reference Range Interpretation Comments CREATININE ABG (test code = CREAABG) mg/dL 0.8-1.3 [id number] 12:54:00 Test Item Value Reference Range Interpretation Comments HEMOGLOBIN (test code = HGB/ABG) G/DL 12.5-16.9 [id number] 12:54:00 Test Item Value Reference Range Interpretation Comments HEMATOCRIT (test code = HCT/ABG) % 37.5-50.7 POC IONIZED [id number] 12:54:00 Test Item Value Reference Range Interpretation Comments POC IONIZED CALCIUM (test code = MMOL/L 1.12-1.32 POCCA) POC [id number] 12:54:00 Test Item Value Reference Range Interpretation Comments POC GLUCOSE (test code = POCGLU) MG/DL 70-110 [id number] 12:54:00 Test Item Value Reference Range Interpretation Comments SODIUM (test code = NA/ABG) 143 MEQ/L 134-147 N [id number] 12:54:00 Test Item Value Reference Range Interpretation Comments POTASSIUM (test code = K/ABG) 3.7 MEQ/L 3.4-5.0 N [id number] 12:54:00 Test Item Value Reference Range Interpretation Comments CHLORIDE (test code = CL/ABG) MEQ/L 100-108 CREATININE [id number] 12:54:00 Test Item Value Reference Range Interpretation Comments CREATININE ABG (test code = CREAABG) mg/dL 0.8-1.3 [id number] 12:54:00 Test Item Value Reference Range Interpretation Comments HEMOGLOBIN (test code = HGB/ABG) G/DL 12.5-16.9 [id number] 12:54:00 Test Item Value Reference Range Interpretation Comments HEMATOCRIT (test code = HCT/ABG) % 37.5-50.7 POC IONIZED [id number] 12:54:00 Test Item Value Reference Range Interpretation Comments POC IONIZED CALCIUM (test code = MMOL/L 1.12-1.32 POCCA) POC [id number] 12:54:00 Test Item Value Reference Range Interpretation Comments POC GLUCOSE (test code = POCGLU) MG/DL 70-110 [id number] 12:54:00 Test Item Value Reference Range Interpretation Comments SODIUM (test code = NA/ABG) 143 MEQ/L 134-147 N [id number] 12:54:00 Test Item Value Reference Range Interpretation Comments POTASSIUM (test code = K/ABG) 3.7 MEQ/L 3.4-5.0 N [id number] 12:54:00 Test Item Value Reference Range Interpretation Comments CHLORIDE (test code = CL/ABG) MEQ/L 100-108 CREATININE [id number] 12:54:00 Test Item Value Reference Range Interpretation Comments CREATININE ABG (test code = CREAABG) mg/dL 0.8-1.3 [id number] 12:54:00 Test Item Value Reference Range Interpretation Comments HEMOGLOBIN (test code = HGB/ABG) G/DL 12.5-16.9 [id number] 12:54:00 Test Item Value Reference Range Interpretation Comments HEMATOCRIT (test code = HCT/ABG) % 37.5-50.7 POC IONIZED [id number] 12:54:00 Test Item Value Reference Range Interpretation Comments POC IONIZED CALCIUM (test code = 1.22 MMOL/L 1.12-1.32 N POCCA) POC [id number] 12:54:00 Test Item Value Reference Range Interpretation Comments POC GLUCOSE (test code = POCGLU) MG/DL 70-110 [id number] 12:54:00 Test Item Value Reference Range Interpretation Comments SODIUM (test code = NA/ABG) 143 MEQ/L 134-147 N [id number] 12:54:00 Test Item Value Reference Range Interpretation Comments POTASSIUM (test code = K/ABG) 3.7 MEQ/L 3.4-5.0 N [id number] 12:54:00 Test Item Value Reference Range Interpretation Comments CHLORIDE (test code = CL/ABG) MEQ/L 100-108 CREATININE [id number] 12:54:00 Test Item Value Reference Range Interpretation Comments CREATININE ABG (test code = CREAABG) mg/dL 0.8-1.3 [id number] 12:54:00 Test Item Value Reference Range Interpretation Comments HEMOGLOBIN (test code = HGB/ABG) G/DL 12.5-16.9 [id number] 12:54:00 Test Item Value Reference Range Interpretation Comments HEMATOCRIT (test code = HCT/ABG) % 37.5-50.7 POC IONIZED [id number] 12:54:00 Test Item Value Reference Range Interpretation Comments POC IONIZED CALCIUM (test code = 1.22 MMOL/L 1.12-1.32 N POCCA) POC [id number] 12:54:00 Test Item Value Reference Range Interpretation Comments POC GLUCOSE (test code = POCGLU) 113 MG/DL 70-110 H [id number] 12:54:00 Test Item Value Reference Range Interpretation Comments SODIUM (test code = NA/ABG) 143 MEQ/L 134-147 N [id number] 12:54:00 Test Item Value Reference Range Interpretation Comments POTASSIUM (test code = K/ABG) 3.7 MEQ/L 3.4-5.0 N [id number] 12:54:00 Test Item Value Reference Range Interpretation Comments CHLORIDE (test code = CL/ABG) MEQ/L 100-108 CREATININE [id number] 12:54:00 Test Item Value Reference Range Interpretation Comments CREATININE ABG (test code = CREAABG) mg/dL 0.8-1.3 [id number] 12:54:00 Test Item Value Reference Range Interpretation Comments HEMOGLOBIN (test code = HGB/ABG) G/DL 12.5-16.9 [id number] 12:54:00 Test Item Value Reference Range Interpretation Comments HEMATOCRIT (test code = HCT/ABG) 49 % 37.5-50.7 N POC IONIZED [id number] 12:54:00 Test Item Value Reference Range Interpretation Comments POC IONIZED CALCIUM (test code = 1.22 MMOL/L 1.12-1.32 N POCCA) POC [id number] 12:54:00 Test Item Value Reference Range Interpretation Comments POC GLUCOSE (test code = POCGLU) 113 MG/DL 70-110 H [id number] 12:54:00 Test Item Value Reference Range Interpretation Comments SODIUM (test code = NA/ABG) 143 MEQ/L 134-147 N [id number] 12:54:00 Test Item Value Reference Range Interpretation Comments POTASSIUM (test code = K/ABG) 3.7 MEQ/L 3.4-5.0 N [id number] 12:54:00 Test Item Value Reference Range Interpretation Comments CHLORIDE (test code = CL/ABG) MEQ/L 100-108 CREATININE [id number] 12:54:00 Test Item Value Reference Range Interpretation Comments CREATININE ABG (test code = CREAABG) mg/dL 0.8-1.3 [id number] 12:54:00 Test Item Value Reference Range Interpretation Comments HEMOGLOBIN (test code = HGB/ABG) 16.6 G/DL 12.5-16.9 N [id number] 12:54:00 Test Item Value Reference Range Interpretation Comments HEMATOCRIT (test code = HCT/ABG) 49 % 37.5-50.7 N POC IONIZED [id number] 12:54:00 Test Item Value Reference Range Interpretation Comments POC IONIZED CALCIUM (test code = 1.22 MMOL/L 1.12-1.32 N POCCA) POC [id number] 12:54:00 Test Item Value Reference Range Interpretation Comments POC GLUCOSE (test code = POCGLU) 113 MG/DL 70-110 H [id number] 12:54:00 Test Item Value Reference Range Interpretation Comments SODIUM (test code = NA/ABG) 143 MEQ/L 134-147 N [id number] 12:54:00 Test Item Value Reference Range Interpretation Comments POTASSIUM (test code = K/ABG) 3.7 MEQ/L 3.4-5.0 N [id number] 12:54:00 Test Item Value Reference Range Interpretation Comments CHLORIDE (test code = CL/ABG) 106 MEQ/L 100-108 N CREATININE [id number] 12:54:00 Test Item Value Reference Range Interpretation Comments CREATININE ABG (test code = CREAABG) mg/dL 0.8-1.3 [id number] 12:54:00 Test Item Value Reference Range Interpretation Comments HEMOGLOBIN (test code = HGB/ABG) 16.6 G/DL 12.5-16.9 N [id number] 12:54:00 Test Item Value Reference Range Interpretation Comments HEMATOCRIT (test code = HCT/ABG) 49 % 37.5-50.7 N POC IONIZED [id number] 12:54:00 Test Item Value Reference Range Interpretation Comments POC IONIZED CALCIUM (test code = 1.22 MMOL/L 1.12-1.32 N POCCA) POC [id number] 12:54:00 Test Item Value Reference Range Interpretation Comments POC GLUCOSE (test code = POCGLU) 113 MG/DL 70-110 H [id number] 12:54:00 Test Item Value Reference Range Interpretation Comments SODIUM (test code = NA/ABG) 143 MEQ/L 134-147 N [id number] 12:54:00 Test Item Value Reference Range Interpretation Comments POTASSIUM (test code = K/ABG) 3.7 MEQ/L 3.4-5.0 N [id number] 12:54:00 Test Item Value Reference Range Interpretation Comments CHLORIDE (test code = CL/ABG) 106 MEQ/L 100-108 N CREATININE [id number] 12:54:00 Test Item Value Reference Range Interpretation Comments CREATININE ABG (test code = 0.9 mg/dL 0.8-1.3 N CREAABG) [id number] 12:54:00 Test Item Value Reference Range Interpretation Comments HEMOGLOBIN (test code = HGB/ABG) 16.6 G/DL 12.5-16.9 N [id number] 12:54:00 Test Item Value Reference Range Interpretation Comments HEMATOCRIT (test code = HCT/ABG) 49 % 37.5-50.7 N POC IONIZED [id number] 12:54:00 Test Item Value Reference Range Interpretation Comments POC IONIZED CALCIUM (test code = 1.22 MMOL/L 1.12-1.32 N POCCA) POC [id number] 12:54:00 Test Item Value Reference Range Interpretation Comments POC GLUCOSE (test code = POCGLU) 113 MG/DL 70-110 H - XR CHEST 2 [id number] 03:36:00 FAX: Gerardo Schroeder MD [phone] [place]: St: REG Name: VICTORIANO VILLASENOR MOO [facility] : 2000 Age/S: 18/M [address] [facility] Unit#: [id number] Loc: [address] Phys: [place] [id number] Acct: [id number] Dis Date: Status: REG ER PHONE #: [phone] Exam Date: 01/25/2019 031 FAX #: [phone] Reason: chest pain EXAMS: CPT CODE: [id number] XR CHEST 2 V 34028 EXAM: - XR CHEST 2 V HISTORY: Chest pain. COMPARISON: October 31, 2017. FINDINGS: PA and lateral view of the chest is provided. Heart size and vascularity are within normal limits. The lungs are clear of focal consolidation. No effusion, pneumothorax, or acute osseous abnormality. IMPRESSION: No radiographic evidence of acute cardiopulmonary process. at 0336 Reported and signed by: Avlaro Carcamo M.D. CC: Gerardo Schroeder MD Technologist: MECHE DEL TORO Trnscrd Date/Time/By: 01/25/2019 (0336) : By: [email or web address] PAGE 1 Signed Report FAX: Gerardo Schroeder MD [phone] [place]: St: REG ---- Name: VICTORIANO VILLASENOR MOO [facility] : 2000 Age/S: 18/M [address] [facility] Unit #: [id number] Loc: [address] Phys: Gerardo Schroeder [place] [id number]: [id number] Dis Date: Status: REG ER PHONE #: [phone] Exam Date: 01/25/2019310 FAX #: [phone] Reason: chest pain EXAMS: CPT CODE: [id number] XR CHEST 2 V 03606 <Continued> Orig Print D/T: S: 01/25/2019 (0339) PAGE 2 Signed ReportDRUGS OF ABUSE SCREEN [id number] 00:57:00 Test Item Value Reference Range Interpretation [...] = [place]) concentrati on: 300 ng/mL URINALYSIS [id number] 00:40:00 Test Item Value Reference Range Interpretation [...] MUCUS (test code = MUCU) 1+ URINALYSIS [id number] 00:32:00 Test Item Value Reference Range Interpretation [...]
[2021-06-07 11:41] LABS: SARS-COV-2 RT PCR POSITIVE (NEGATIVE)
--- NOTE | 2021-06-07 11:45 | ER ---
Nurse's Notes [facility] Name: Dawson Cabezas Age: 21 yrs Sex: Male : 2000 Arrival Date: 06/07/2021 Time: 10:02 Bed Waiting Private MD: Diagnosis: Coronavirus infection, unspecified Presentation: 06/07 10:04 Chief complaint: Patient states: P STATES WAS EXPOSED TO COVID 2DAYS AGO ,SORE THROAT, iw RUNNY NOS,E HEADACHE. Coronavirus screen: Client denies travel out of the [place] in the last 14 days. 10:04 Method Of Arrival: Ambulatory iw 10:08 Acuity: MARIA INES 3 iw Triage Assessment: 10:06 General: Appears in no apparent distress. iw - Social history:: Smoking status: Patient reports the use of cigarette tobacco products, Reported history of juuling and/or vaping. Patient uses. Assessment: 10:07 General: Appears in no apparent distress. iw Vital Signs: 10:04 BP 128 / 71; Pulse 91; Resp 16; Temp 98.6; Pulse Ox 99% on R/A; Weight 117.93 kg; iw Height 5 ft. 10 in. (177.80 cm); Pain 5/10; 10:07 BP 129 / 74; Pulse 99; Resp 16; Temp 98.6; Pulse Ox 100% ; iw 10:04 Body Mass Index 37.31 (117.93 kg, 177.80 cm) iw ED Course: 10:02 Patient arrived in ED. ds1 10:08 Triage completed. iw 10:17 Strep Sent. iw 10:17 COVID-19/FLU A+B (Document "Date of Onset" if Symptomatic) Sent. iw 10:23 Tha Barros PA is PHCP. [facility] 10:23 Dino Shukla MD is Attending Physician. [facility] 12:19 Lily Hayward, RN is Primary Nurse. iw Administered Medications: No medications were administered Outcome: 11:45 Discharge ordered by . [facility] 12:19 Patient left the ED. iw Signatures: Tha Barros PA PA jmm Sanford, Demi ds1 Lily Hayward, RN RN iw
--- NOTE | 2021-06-07 11:45 | EDPHYS ---
Physician Documentation [facility] Name: Dawson Cabezas Age: 21 yrs Sex: Male : 2000 Arrival Date: 06/07/2021 Time: 10:02 Bed Waiting Private MD: ED Physician Dino Shukla HPI: 06/07 10:10 This 21 yrs old Male presents to ER via Ambulatory with complaints of Flu jmm Symptoms - Covid Swab. 10:10 Onset: The symptoms/episode began/occurred gradually, 1 day(s) ago. Modifying factors: jmm The symptoms are alleviated by nothing. the symptoms are aggravated by nothing. Associated signs and symptoms: Pertinent positives: sore throat. This is a 21-year-old male with no known chronic medical conditions presents emerge department with complaints of fever, sore throat and slight cough. Denies vomiting or diarrhea, denies shortness of breath.. - Social history:: Smoking status: Patient reports the use of cigarette tobacco products, Reported history of juuling and/or vaping. Patient uses. ROS: 10:10 Cardiovascular: Negative for chest pain, palpitations, and edema. jmm 10:10 Constitutional: Positive for body aches, fatigue, fever. 10:10 ENT: Positive for sore throat. 10:10 Respiratory: Positive for cough. 10:10 All other systems are negative. Exam: 10:10 Constitutional: This is a well developed, well nourished patient who is awake, alert, jmm and in no acute distress. Head/Face: atraumatic. Eyes: EOMI, no conjunctival erythema appreciated 10:10 Cardiovascular: Regular rate and rhythm. No edema appreciated Respiratory: Normal respirations, no respiratory distress appreciated Abdomen/GI: Non distended, soft Back: Normal ROM Skin: General appearance color normal MS/ Extremity: Moves all extremities, no obvious deformities appreciated, no edema noted to the lower extremities Neuro: Awake and alert, normal gait Psych: Behavior is normal, Mood is normal, Patient is cooperative and pleasant 10:10 ENT: Posterior pharynx: erythema, that is mild. Vital Signs: 10:04 BP 128 / 71; Pulse 91; Resp 16; Temp 98.6; Pulse Ox 99% on R/A; Weight 117.93 kg; iw Height 5 ft. 10 in. (177.80 cm); Pain 5/10; 10:07 BP 129 / 74; Pulse 99; Resp 16; Temp 98.6; Pulse Ox 100% ; iw 10:04 Body Mass Index 37.31 (117.93 kg, 177.80 cm) iw MDM: 11:34 Patient medically screened. [facility] 11:44 Data reviewed: vital signs, nurses notes. Counseling: I had a detailed discussion with lucretia the patient and/or guardian regarding: the historical points, exam findings, and any diagnostic results supporting the discharge/admit diagnosis, lab results, the need for outpatient follow up, to return to the emergency department if symptoms worsen or persist or if there are any questions or concerns that arise at home. ED course: Patient is alert and nontoxic in appearance NAD. Patient exhibits no signs of respiratory distress. Patient advised follow-up PCP and otherwise given strict return precautions. Patient understood agrees plan of care.. 06/07 10:09 Order name: COVID-19/FLU A+B (Document "Date of Onset" if Symptomatic); Complete Time: iw 11:46 06/07 10:09 Order name: Strep; Complete Time: 11:35 iw 06/07 11:11 Order name: Throat Culture EDMS Administered Medications: No medications were administered Disposition: 18:51 Co-signature as Attending Physician, Dino Shukla MD I agree with the assessment and kdr plan of care. Disposition Summary: 06/07/21 11:45 Discharge Ordered Location: Home [facility] Condition: Stable [facility] Diagnosis - Coronavirus infection, unspecified jm Followup: jmm - With: Private Physician - When: 2 - 3 days - Reason: Recheck today's complaints, Continuance of care, Re-evaluation by your physician Discharge Instructions: - Discharge Summary Sheet [facility] - COVID-19 [facility] Forms: - Medication Reconciliation Form [facility] - Thank You Letter jm - Antibiotic Education jmm - Work release form [facility] - Prescription Opioid Use [facility] Signatures: Dispatcher [employer] EDDino Reyna MD MD kdr Mickail, Joel, PA PA jmm Williams, Irene, MALISSA RN iw
[2021-06-07 12:23] VITALS: TEMP 98.6
[2021-06-07 12:25] VITALS: BP 129/74; O2SAT 100
== END 2021-06-07 12:19 | disposition home or self-care (01) ==
LOC: ER 09:59
DX: U07.1 COVID-19 (principal); Z72.0 Tobacco use
CPT/HCPCS: 87070; 87081; 0240U; 99283

== ENCOUNTER 2024-09-11 16:57 | Emergency (ER) | payer BC ==
--- OUTSIDE RECORDS SUMMARY | 2024-09-11 17:01 | XMS REPORT | Continuity of Care Document ---
Author Name Unknown Address [address] [facility] [address] [place] [address] [facility] [place] Address [address] [facility] [address] [place] [address] Care Team Providers Care Facility Planner Name Role Phone [address] Primary Care Physician ROSA James Attending Clinician UnavailROSA Mckenzie Attending Clinician UnavailRosa Mckenzie DO Attending Clinician [phone] ANNA MARTINEZ Attending Clinician Unavailable Anna Martinez DO Attending Clinician [phone] Doctor Unassigned, [place] Attending Clinician U Randal Morrison Attending Clinician UnavailHEDY yLons Attending Clinician Karen ilable LAB90 Attending Clinician Unavailable Sadiq PINA, Hedy Chapman Attending Clinician [phone] UTE LÓPEZ Attending Clinician UnavailROSA Alas Admitting Clinician UnavailANNA Palafox Admitting Clinician Unavailable Physician, No Primary or Family Admitting Clinic [facility] Unavailable UTE LÓPEZ Admitting Clinician Unavailabl e Payers Payer Name Policy Type Policy Number Effective Date Expirati on Date Source [facility] [id number] 2018 00:00:00 BC[employer] 2 [id number] 2021 00:00:00 Problems Condition Name Condition Details Condition Category Status Onset Date Resolution Date Last Treatment Date Treating Clinician Comments Source Splenomega ly Splenomega ly Disease Active 09-22 00:00: 00 [facility] Mononucleo sis Mononucleo sis Disease Active 09-22 00:00: 00 [facility] Gynecomast ia Gynecomast ia Disease Active 2014-06 00:00: 00 [facility] Allergies, Adverse Reactions, Alerts Allergy Name Allergy Type Status Severity Reaction(s) Onset Date Inactive Date Treating Clinician Comments Source No Known Allergie s DA Active U 11-04 00:00: 00 [facility] No Known Allergie s DA Active U 01-25 00:00: 00 [facility] No Known Allergie s DA Active U 01-25 00:00: 00 [facility] No Known Allergie s DA Active U 01-15 00:00: 00 [facility] NO KNOWN ALLERGIE S Drug Class Active [facility] Social History Social Habit Start Date Stop Date Quantity Comments Source [facility] intake 2024-02-15 00:00:00 2024-02-15 00:00:00 0 /d [facility] History of Social function 2024-02-15 00:00:00 2024-02-15 00:00:00 [facility] Alcohol intake 2020-08-26 00:00:00 2020-08-26 00:00:00 0 /d [facility] Sex assigned at 2000 00:00:00 2000 00:00:00 [facility] Smoking Status Start Date Stop Date Source Never smoked tobacco [facility] Medications Ordered Medication Name Filled Medication Name Start Date Stop Date Current Medication? Ordering Clinician Indication Dosage Frequency Signature (SIG) Comments Components Source iopamidol (ISOVUE 370-500 mL) injection 100 mL 02-15 05:45: 00 02-15 05:45 :00 No [id number] 100mL 100 mL, Intravenou s, ONCE, 1 dose, On Tue02/16/24 at 0045, Routine [facility] NaCl 0.9% (NS) bolus infusion 1,000 mL 02-15 05:00: 00 02-15 05:46 :00 No 1000mL at 999 mL/hr, 1,000 mL, IV Infusion, ONCE, 1 dose, On Tue02/16/24 at 0000[facility] dex[facility]aso ne sod phos PF injection 10 mg 02-15 04:15: 00 02-15 04:21 :00 No 10mg 10 mg, Slow IV Push, ONCE, 1 dose, On Tue02/15/24 at 2315, 1 mL [facility] diphenhydrA MINE (BENADRYL) injection 25 mg 02-15 04:15: 00 02-15 04:21 :00 No 25mg 25 mg, Slow IV Push, ONCE, 1 dose, On Tue02/15/24 at 2315, STAT [facility] metoclopram germán HCl (REGLAN) injection 10 mg 02-15 04:15: 00 02-15 04:21 :00 No 10mg 10 mg, Slow IV Push, ONCE, 1 dose, On Tue02/15/24 at 2315, [facility] HYDROcodone -acetaminop hen (NORCO) 10-325 mg tablet 1 tablet 08-01 09:00: 00 08-01 08:07 :00 No 1{tbl} 1 tablet, Oral, ONCE, 1 dose, On Tue08/01/23 at 0300, Routine [facility] iopamidol (ISOVUE 370-500 mL) injection 100 mL 08-01 08:00: 00 08-01 08:00 :00 No [id number] 100mL 100 mL, Intravenou s, ONCE, 1 dose, On Tue08/01/23 at 0200, Routine [facility] pantoprazol e (PROTONIX) 80 mg in NaCl 0.9% (NS) 20 mL syringe 08-01 07:00: 00 08-01 07:02 :00 No 80mg 80 mg, IV Push, ONCE, 1 dose, On Tue08/01/23 at 0100, Administer over 2 Minutes, 20 mL [facility] ondansetron (ZOFRAN (PF)) injection 4 mg 08-01 07:00: 00 08-01 06:30 :00 No 4mg 4 mg, Slow IV Push, ONCE, 1 dose, On Tue08/01/23 at 0100, Routine [facility] dicyclomine 20 mg tablet 08-01 00:00: 00 Yes [id number] 20mg Take 1 tablet by mouth 4 (four) times daily as needed for Abdominal pain. [facility] albuterol 2.5 mg /3 mL (0.083 %) nebulizer solution 06-21 00:00: 00 Yes [id number] 2.5mg Inhale 3 mL every 4 (four) hours as needed for Wheezing or Shortness of Breath. May also nebulize one extra every 6 hours. [facility] ketorolac 10 mg tablet 06-21 00:00: 00 Yes [id number] 10mg Take 1 tablet by mouth every 6 (six) hours as needed for Pain (scale 7-10). [facility] CEPHALEXIN (KEFLEX ORAL) 08-25 08:52: 44 Yes 500mg Take 500 mg by mouth. [facility] HYDROcodone -acetaminop hen (NORCO 5) 5-325 mg tablet 08-25 08:52: 44 Yes 1{tbl} Take 1 Tab by mouth every 6 (six) hours as needed. [facility] Vital Signs Vital Name Observation Time Observation Value Comments Wood rosado Systolic blood pressure 2024-02-16 05:49:00 109 mm[Hg] [facility] Diastolic blood pressure 2024-02-16 05:49:00 63 mm[Hg] [facility] Heart rate 2024-02-16 05:49:00 75 /min [facility] Body temperature 2024-02-16 05:49:00 36.67 Bertha [facility] Respiratory rate 2024-02-16 05:49:00 18 /min [facility] Oxygen saturation in Arterial blood by Pulse oximetry 2024-02-16 05:49:00 98 /min [facility] Body height 2024-02-16 04:01:00 177.8 cm [facility] Body weight 2024-02-16 04:01:00 130.182 kg [facility] BMI 2024-02-16 04:01:00 41.18 kg/m2 [facility] Systolic blood pressure 2023-08-01 08:07:00 150 mm[Hg] [facility] Diastolic blood pressure 2023-08-01 08:07:00 85 mm[Hg] [facility] Heart rate 2023-08-01 08:07:00 80 /min [facility] Oxygen saturation in Arterial blood by Pulse oximetry 2023-08-01 08:07:00 97 /min [facility] Body temperature 2023-08-01 05:42:00 37.22 Bertha [facility] Respiratory rate 2023-08-01 05:42:00 18 /min [facility] Body height 2023-08-01 05:42:00 175.3 cm [facility] Body weight 2023-08-01 05:42:00 128.368 kg [facility] BMI 2023-08-01 05:42:00 41.79 kg/m2 [facility] Procedures Procedure Date / Time Performed Performing Clinicia n Source BASIC METABOLIC PANEL (NA, K, CL, CO2, GLUCOSE, BUN, CREATININE, CA) 2024-02-16 04:19:00 Rosa Leo [facility] CBC WITH DIFF 2024-02-16 04:19:00 Rosa Leo U [facility] CT ABDOMEN PELVIS W CONTRAST 2023-08-01 07:06:19 Anna Martinez [facility] LIPASE 2023-08-01 06:08:00 Anna Martinez [facility] COMP. METABOLIC PANEL (73785) 2023-08-01 06:08:00 Singer [facility] LIPID PANEL (92132)(TOTAL CHOLESTEROL, TRIGLYCERIDES, HDL) 2023-08-01 06:08:00 Singer Anna [facility] CBC WITH DIFF 2023-08-01 06:08:[address] [facility] URINALYSIS 2023-08-01 06:08:00 Anna Martinez [facility] NOTICE OF PRIVACY PRACTICES 2023-08-01 05:34:18 Doctor Unassigned, Rawlings [facility] CONSENT/REFUSAL FOR DIAGNOSIS AND TREATMENT 2023-08-01 05:33:58 Doctor Unassigned, Rawlings [facility] Encounters Start Date/Time End Date/Time Encounter Type Admission Type Attending [facility] Facility Care Department Encounter ID Source 2024-08-03 11:17:55 2024-08-03 11:17:55 Outpatient [facility] [id number] Elan Bhavya Eugene 2024-02-15 23:05:00 2024-02-16 01:00:00 Emergency X ROSA LEO SANDRA [facility] E[facility] [id number] [facility] 2024-02-15 23:05:00 2024-02-16 01:00:00 Emergency Rosa Leo [facility] [id number] 350.1.13.10 4.2.7.2.686 [id number] [facility] 2023-07-31 23:45:00 2023-08-01 02:17:00 Emergency X ANNA MARTINEZ [facility] ERT [id number] [facility] 2023-07-31 23:45:00 2023-08-01 02:17:00 Emergency Anna Martinez [facility] [id number] [id number] 4.2.7.2.686 [id number] [facility] 2023-07-31 00:00:00 2023-07-31 00:00:00 Orders Only Doctor Unassigned, Rawlings [facility] 1.2.840.114 350.1.13.10 4.2.7.2.686 [id number] [facility] 2022-11-04 19:09:00 2022-11-04 20:00:00 Emergency EM Randal Cabezas HCAC[facility] TERS [id number] [facility] 2021-12-25 00:00:00 2021-12-25 00:00:00 Outpatient HEDY STALLINGS [id number] Mag Rodrigues 2021-12-09 08:45:00 2021-12-09 08:45:00 Outpatient LAB90 MAG FRAGA [id number] Mag [facility] 2021-12-09 08:00:00 2021-12-09 08:30:00 Office Visit Hedy Stallings Kerwin Cabezas 1.2.840.114 350.1.13.13 1.2.7.2.686 [id number] Mag [facility] 2021-12-09 00:00:00 2021-12-09 00:00:00 Outpatient HEDY STALLINGS [id number] Mag Rodrigues 2015-08-04 11:16:06 2015-08-04 19:27:00 Outpatient UTE DIETRICH [facility] DSU [id number] [facility] Results Test Description Test Time Test Comments Results Result Co mments Source [facility] WITH [id number] 04:30:50* Test Item Value Reference Range Interpretation Comme nts WBC (test code = 6690-2) 10.82 4.20-10.70 H RBC (test code = 789-8) 4.50 4.26-5.52 HGB (test code = 718-7) 13.1 g/dL 12.2-16.4 HCT (test code = 4544-3) 39.2 % 38.4-49.3 MCV (test code = 787-2) 87.1 fL 81.7-95.6 MCH (test code = 785-6) 29.1 pg 26.1-32.7 MCHC (test code = 786-4) 33.4 g/dL 31.2-35.0 RDW-SD (test code = 08573-5) 41.0 fL 38.5-51.6 RDW-CV (test code = 788-0) 13.0 % 12.1-15.4 PLT (test code = 777-3) 249 150-328 MPV (test code = 78698-5) 10.6 fL 9.8-13.0 NRBC/100 WBC (test code = 6200042487) 0.0 0.0-10.0 NRBC x10^3 (test code = 2716761108) See_Comment [Automated messa ge] The system which generated this result transmitted reference range: 10*3/?L. The reference range was not used to interpret this result as normal/abnormal. GRAN MAT (NEUT) % (test code = 770-8) 57.3 % IMM GRAN % (test code = 5121544085) 0.30 % LYMPH % (test code = 736-9) 33.6 % MONO % (test code = 5905-5) 7.8 % EOS % (test code = 713-8) 0.6 % BASO % (test code = 706-2) 0.4 % GRAN MAT x10^3(ANC) (test code = 8110831791) 6.20 10*3/uL 1.99-6.95 IMM GRAN x10^3 (test code = 5606919607) 0.03 10*3/uL 0.00-0.06 LYMPH x10^3 (test code = 731-0) 3.64 10*3/uL 1.09-3.23 H MONO x10^3 (test code = 742-7) 0.84 10*3/uL 0.36-1.02 EOS x10^3 (test code = 711-2) 0.07 10*3/uL 0.06-0.53 BASO x10^3 (test code = 704-7) 0.04 10*3/uL 0.01-0.09 Lab Interpretation (test code = 43556-0) [facility] [id number] 07:29:56Exam: CT Abdomen and Pelvis With Contrast, 08/01/2023 12:00 AM. Ordering Physician: ANNA MARTINEZ. History: Abdominal abscess/infection suspected . Comparison: None. Technique: CT abdomen and pelvis was obtained with intravenous contrast. CTwas performed according to ALARA (As Low As Reasonably Achievable). Technical Quality: Adequate. Findings: LOWER CHEST:Normal . ABDOMEN/PELVIS:LiverNormal.l.Gallbladder/biliaryNormal gallbladder.rNo biliary ductal dilation.n.PancreasNormal.l.SpleenNormal.l. Adrenal glandsNormal.l.Kidneys and uretersNormal.l.BladderNormal.l.Reproductive organsNormal for age.e. Stomach/bowel: Bowel is decompressed. Normal appendix. Prominent number ofnonenlarged mesentericnodes. Lymph nodesNo lymphadenopathy.y.PeritoneumNo intraperitoneal free air.rNo intraperitoneal free fluid.d.VesselsNormal. MUSCULOSKELETAL:BonesNo acute osseous abnormality.y. The anterior disc space loss andosseous bridging of T11-T11 vertebral body.Soft tissuesUnremarkable.e.[facility] (43406)(Total Cholesterol, Triglycerides, HDL)2023-08-01 06:35:32* Test Item Value Reference Range Interpretation Comme nts CHOL (test code = 5206481487) 188 mg/dL 120-200 HDL (test code = 6375224462) 46 mg/dL >=40 HDLC RATIO (test code = 8172127146) 4.1 <=5.0 TRIG (test code = 4286522153) 113 mg/dL 30-170 LDL CHOL (test code = 49830-4) 119 mg/dL <=160 VLDL (test code = 5350329574) 23 mg/dL 5-60 Lab Interpretation (test cod e = 21149-9) Normal [facility] (81757)2023-08-01 06:35:12* Test Item Value Reference Range Interpretation Comme nts NA (test code = 4072908759) 138 mmol/L 135-145 K (test code = 3427554620) 4.0 mmol/L 3.5-5.0 CL (test code = 6912344089) 105 mmol/L 98-108 CO2 TOTAL (test code = 1863350116) 29 mmol/L 23-31 AGAP (test code = 5006913292) 4 2-16 BUN (test code = 6009281871) 13 mg/dL 7-23 GLUCOSE (test code = 1026194608) 92 mg/dL 70-110 CREATININE (test code = 2160-0) 0.72 mg/dL 0.60-1.25 TOTAL BILI (test code = 3372424119) 0.8 mg/dL 0.1-1.1 CALCIUM (test code = 3712078087) 9.0 mg/dL 8.6-10.6 T PROTEIN (test code = 2547270172) 8.1 g/dL 6.3-8.2 ALBUMIN (test code = 2483636524) 4.3 g/dL 3.5-5.0 ALK PHOS (test code = 7770939457) 85 U/L 34-122 ALTv (test code = 1742-6) 32 U/L 5-50 AST(SGOT) (test code = 2146262871) 41 U/L 13-40 H eGFR (test code = 25408-9) 131.7 mL/min/1.73m2 CKD-EPI eGFR (2020). Assuming creatinine has been stable day-to-day for at least three months, the eGFR indicates Category G1 (>= 90 mL/min/1.73 m2) Lab Interpretation (test code = 82260-7) Abnormal [facility]2024-[facility] 06:34:47* Test Item Value Reference Range Interpretation Comme nts LIPASE (test code = 6631756250) 87 U/L 0-220 Lab Interpretation (test cod e = 57536-9) Normal [facility] with [id number] 06:20:29* Test Item Value Reference Range Interpretation Comme nts WBC (test code = 6690-2) 8.11 4.20-10.70 RBC (test code = 789-8) 4.62 4.26-5.52 HGB (test code = 718-7) 13.6 g/dL 12.2-16.4 HCT (test code = 4544-3) 39.6 % 38.4-49.3 MCV (test code = 787-2) 85.7 fL 81.7-95.6 MCH (test code = 785-6) 29.4 pg 26.1-32.7 MCHC (test code = 786-4) 34.3 g/dL 31.2-35.0 RDW-SD (test code = 57541-9) 39.2 fL 38.5-51.6 RDW-CV (test code = 788-0) 12.7 % 12.1-15.4 PLT (test code = 777-3) 242 150-328 MPV (test code = 88796-1) 10.6 fL 9.8-13.0 NRBC/100 WBC (test code = 0263507426) 0.0 0.0-10.0 NRBC x10^3 (test code = 9819113641) See_Comment [Automated me ssage] The system which generated this result transmitted reference range: 10*3/?L. The reference range was not used to interpret this result as normal/abnormal. GRAN MAT (NEUT) % (test code = 770-8) 52.0 % IMM GRAN % (test code = 0630357066) 0.20 % LYMPH % (test code = 736-9) 37.0 % MONO % (test code = 5905-5) 8.1 % EOS % (test code = 713-8) 2.3 % BASO % (test code = 706-2) 0.4 % GRAN MAT x10^3(ANC) (test code = 4381953164) 4.21 10*3/uL 1.99-6.95 IMM GRAN x10^3 (test code = 9158703310) 0.00-0.06 LYMPH x10^3 (test code = 731-0) 3.00 10*3/uL 1.09-3.23 MONO x10^3 (test code = 742-7) 0.66 10*3/uL 0.36-1.02 EOS x10^3 (test code = 711-2) 0.19 10*3/uL 0.06-0.53 BASO x10^3 (test code = 704-7) 0.03 10*3/uL 0.01-0.09 [facility]- XR RIBS UNI W/CXR 3+V [id number] 19:44:00 [facility] VICTORIANO CABEZAS CLAUDIAKAYLA CORTÉS : 2000 Sex: M FAX: Randal Cabezas MD [place]: St: REG Name: VICTORIANO CABEZAS [place] FSED : 2000 Age/S: 22/M Unit #: [id number] [place] Phys: Randal Cabezas MD Acct: [id number] Dis Date: Status: REG ER PHONE #: Exam Date: 11/04/20221927 FAX #: Reason: rib pain EXAMS: CPT CODE: [id number] XR RIBS UNI W/CXR 3+V LT 11136 LOCATION: Q15 HISTORY: 22-year-old male presents with left-sided rib pain. COMMENT: A frontal chest radiograph was obtained along with a left ribseries. A prior chest x-ray of January 25, 2019 is available for comparison. The inspiratory effort is limited. The cardiac silhouette is unremarkable. Mild vascular crowding is seen centrally. Lung pe riphery is clear. The soft tissues are unremarkable. The left rib series demonstrates no acute or destructive bony lesions. The chest wall soft tissues are unremarkable. IMPRESSION: Unremarkable radiographic examination of the chest. Inspiratory effort is suboptimal. Unremarkable left rib series. at 1944 Reported and signed by: Tho Matthews M.D. CC: Randal Cabezas MD Technologist: RT Tati(R)(CT) Trnscrd Date/Time/By: 11/04/2022 (1943) : By: [email or web address] Orig Print D/T: S: 11/04/2022 (1946) PAGE 1 Signed Report HEPATIC FUNCTION [id number] 07:01:00* Test Item Value Reference Range Interpretation Comme nts TOTAL PROTEIN (test code = PROT) 7.8 g/dL 6.4-8.2 N Performed by: [facility] [address] [place], [place] [address]Ubiklmypey reported result: 7.8 g/dLEdited by: SHON on 04/05/19:855867 9 0701: T.PROT previously reported as: 7.8 g/dL ALBUMIN (test code = ALB) 3.70 g/dL 3.4-5.0 N BILIRUBIN TOTAL (test code = BILT) 0.4 MG/DL <1.5 N BILIRUBIN DIRECT (test code = BILD) 0.10 MG/DL 0.0-0.30 N BILIRUBIN INDIRECT (test code = BILIND) 0.30 MG/DL SGOT/AST (test code = AST) 21 IUnit/L 15-37 N SGPT/ALT (test code = ALT) 39 IUnit/L 15-65 N ALKALINE PHOSPHATASE TOTAL (test code = ALKP) 101 IUnit/L 60-350 N [id number] 07:01:00* Test Item Value Reference Range Interpretation Comme nts LIPASE (test code = LIP) 120 IUnit/L 73-393 N HEPATIC FUNCTION [id number] 07:01:00* Test Item Value Reference Range Interpretation Comme nts TOTAL PROTEIN (test code = PROT) 7.8 g/dL 6.4-8.2 N Performed by: DIONE Crandall [facility] [address] [facility], [place], [place] [address]Phmnzxznxi reported result: 7.8 g/dLEdited by: SHON on 04/05/19:347804 9 0701: T.PROT previously reported as: 7.8 g/dL ALBUMIN (test code = ALB) 3.70 g/dL 3.4-5.0 N BILIRUBIN TOTAL (test code = BILT) 0.4 MG/DL <1.5 N BILIRUBIN DIRECT (test code = BILD) 0.10 MG/DL 0.0-0.30 N BILIRUBIN INDIRECT (test code = BILIND) 0.30 MG/DL SGOT/AST (test code = AST) 21 IUnit/L 15-37 N SGPT/ALT (test code = ALT) 39 IUnit/L 15-65 N ALKALINE PHOSPHATASE TOTAL (test code = ALKP) 101 IUnit/L 60-350 N [id number] 07:01:00* Test Item Value Reference Range Interpretation Comme nts LIPASE (test code = LIP) 120 IUnit/L 73-393 N HEPATIC FUNCTION [id number] 06:59:00* Test Item Value Reference Range Interpretation Comme nts TOTAL PROTEIN (test code = PROT) 7.8 g/dL 6.4-8.2 N ALBUMIN (test code = ALB) 3.70 g/dL 3.4-5.0 N BILIRUBIN TOTAL (test code = BILT) 0.4 MG/DL <1.5 N BILIRUBIN DIRECT (test code = BILD) 0.10 MG/DL 0.0-0.30 N BILIRUBIN INDIRECT (test cod e = BILIND) 0.30 MG/DL SGOT/AST (test code = AST) 21 IUnit/L 15-37 N SGPT/ALT (test code = ALT) 39 IUnit/L 15-65 N ALKALINE PHOSPHATASE TOTAL ( test code = ALKP) 101 IUnit/L 60-350 N [id number] 06:59:00* Test Item Value Reference Range Interpretation Comme nts LIPASE (test code = LIP) 120 IUnit/L 73-393 N HEPATIC FUNCTION [id number] 06:59:00* Test Item Value Reference Range Interpretation Comme nts TOTAL PROTEIN (test code = PROT) 7.8 g/dL 6.4-8.2 N ALBUMIN (test code = ALB) 3.70 g/dL 3.4-5.0 N BILIRUBIN TOTAL (test code = BILT) 0.4 MG/DL <1.5 N BILIRUBIN DIRECT (test code = BILD) 0.10 MG/DL 0.0-0.30 N BILIRUBIN INDIRECT (test cod e = BILIND) 0.30 MG/DL SGOT/AST (test code = AST) 21 IUnit/L 15-37 N SGPT/ALT (test code = ALT) 39 IUnit/L 15-65 N ALKALINE PHOSPHATASE TOTAL ( test code = ALKP) 101 IUnit/L 60-350 N [id number] 06:59:00* Test Item Value Reference Range Interpretation Comme nts LIPASE (test code = LIP) 120 IUnit/L 73-393 N CBC W/AUTO [id number] 14:59:00* Test Item Value Reference Range Interpretation Comme nts WHITE BLOOD CELL (test code = WBC) [...] pg 27.0-31.0 N MEAN CELL HGB CONCETRATION ( test code = MCHC) 35.3 GM/DL 33.0-37.0 N RED CELL DISTRIBUTION WIDTH CV (test code = RDW) 13.7 % 11.5-14.5 N RED CELL DISTRIBUTION WIDTH SD (test code = RDW-SD) 42.9 % 37.0-54.0 N PLATELET COUNT (test code = PLT) 212 [...] k/mm3 0.1-0.8 N - CT ABD PELVIS [id number] 13:57:00Name: VICTORIANO CABEZAS [place] FSED : 2000 Age/S: 18 / M Unit #: [id number] Loc: [place], [place] Phys: Nohemy Ac MD Acct: [id number] Dis Date: Status: REG ER PHONE #: Exam Date: 03/27/2019 1338 FAX #: Reason: RLQ pain EXAMS: CPT CODE: [id number] CT ABD PELVIS W/CONT 54866 EXAM: CT ABDOMEN AND PELVIS WITH CONTRAST DATE: 03/27/2019 12:56 PM : 2000; Age: 18years y/o Male INDICATION: RLQ pain COMPARISON: None. TECHNIQUE: Volumetric CT of the abdomen and pelvis is acquired following the intravenous administration of contrast. Axial, coronal and sagittal images are provided. IV contrast: 100 mL Isovue Enteric contrast: None. DLP: 1163 mGy-cm CT imaging performed at this location utilizes radiation dose optimization techniques which include one or moreof the following: - Automated exposure control -Adjustment [...] Fatty proliferation is noted involving the hepatic flexurecolonic wall with adjacent haziness of the fat. No bowel obstruction. Peritoneum, mesentery and retroperitoneum: Tiny mesenteric nodes. No drainable abscess. No ascites. PAGE 1 Signed Report (CONTINUED) Name: VICTORIANO CABEZAS [place] FSED : 2000 Age/S: 18 / M Unit #: [id number] Loc: [place], [place] Phys: Nohemy Ac MD Acct: [id number] Dis Date: Status: REG ER PHONE #: Exam Date: 03/27/2019 3547 FAX #: Reason: RLQ pain EXAMS: CPT CODE: [id number] CT ABD PELVIS W/CONT 69373 <Continued> Reproductive organs: Prostate and seminal vesicles are unremarkable. Bladder: Normal. Soft tissues: Normal. Bones: No acute abnormality. Moderate disc space narrowing buG33-O60 level. IMPRESSION: 1. Fatty proliferation is noted involving the hepatic flexure colonic wall with adjacent haziness of the fat. Findings may represent subtle acute on chronic inflammatory process involving the hepatic flexure. 2. Normal appendix. 3. Moderate disc space narrowing at B56-L50wnmdv. SL: [id number] at 1357 Reported and signed by: Simon Burk D.O. CC: Nohemy Ac MD Technologist:RT [place](R)(CT) CTDI: DLP: Trnscb Date/Time: 03/27/2019 (1357) t.SDR.MP37 Orig Print D/T: S: 03/27/2019 (1400) PAGE 2 Signed [id number] 12:54:00* Test Item Value Reference Range Interpretation Comme nts HEMATOCRIT (test code = HCT/ABG) 49 % 37.5-50.7 N POC IONIZED [id number] 12:54:00* Test Item Value Reference Range Interpretation Comme nts POC IONIZED CALCIUM (test co de = POCCA) 1.22 MMOL/L 1.12-1.32 N POC [id number] 12:54:00* Test Item Value Reference Range Interpretation Comme nts POC GLUCOSE (test code = POCGLU) 113 MG/DL 70-110 H [id number] 12:54:00* Test Item Value Reference Range Interpretation Comme nts SODIUM (test code = NA/ABG) 143 MEQ/L 134-147 N [id number] 12:54:00* Test Item Value Reference Range Interpretation Comme nts POTASSIUM (test code = K/ABG) MEQ/L 3.4-5.0 [id number] 12:54:00* Test Item Value Reference Range Interpretation Comme nts CHLORIDE (test code = CL/ABG) MEQ/L 100-108 CREATININE [id number] 12:54:00* Test Item Value Reference Range Interpretation Comme nts CREATININE ABG (test code = CREAABG) mg/dL 0.8-1.3 [id number] 12:54:00* Test Item Value Reference Range Interpretation Comme nts HEMOGLOBIN (test code = HGB/ABG) G/DL 12.5-16.9 [id number] 12:54:00* Test Item Value Reference Range Interpretation Comme nts HEMATOCRIT (test code = HCT/ABG) % 37.5-50.7 POC IONIZED [id number] 12:54:00* Test Item Value Reference Range Interpretation Comme nts POC IONIZED CALCIUM (test co de = POCCA) MMOL/L 1.12-1.32 POC [id number] 12:54:00* Test Item Value Reference Range Interpretation Comme nts POC GLUCOSE (test code = POCGLU) MG/DL 70-110 [id number] 12:54:00* Test Item Value Reference Range Interpretation Comme nts SODIUM (test code = NA/ABG) 143 MEQ/L 134-147 N [id number] 12:54:00* Test Item Value Reference Range Interpretation Comme nts POTASSIUM (test code = K/ABG) 3.7 MEQ/L 3.4-5.0 N [id number] 12:54:00* Test Item Value Reference Range Interpretation Comme nts CHLORIDE (test code = CL/ABG) MEQ/L 100-108 CREATININE [id number] 12:54:00* Test Item Value Reference Range Interpretation Comme nts CREATININE ABG (test code = CREAABG) mg/dL 0.8-1.3 [id number] 12:54:00* Test Item Value Reference Range Interpretation Comme nts HEMOGLOBIN (test code = HGB/ABG) G/DL 12.5-16.9 [id number] 12:54:00* Test Item Value Reference Range Interpretation Comme nts HEMATOCRIT (test code = HCT/ABG) % 37.5-50.7 POC IONIZED [id number] 12:54:00* Test Item Value Reference Range Interpretation Comme nts POC IONIZED CALCIUM (test co de = POCCA) MMOL/L 1.12-1.32 POC [id number] 12:54:00* Test Item Value Reference Range Interpretation Comme nts POC GLUCOSE (test code = POCGLU) MG/DL 70-110 [id number] 12:54:00* Test Item Value Reference Range Interpretation Comme nts SODIUM (test code = NA/ABG) 143 MEQ/L 134-147 N [id number] 12:54:00* Test Item Value Reference Range Interpretation Comme nts POTASSIUM (test code = K/ABG) 3.7 MEQ/L 3.4-5.0 N [id number] 12:54:00* Test Item Value Reference Range Interpretation Comme nts CHLORIDE (test code = CL/ABG) MEQ/L 100-108 CREATININE [id number] 12:54:00* Test Item Value Reference Range Interpretation Comme nts CREATININE ABG (test code = CREAABG) mg/dL 0.8-1.3 [id number] 12:54:00* Test Item Value Reference Range Interpretation Comme nts HEMOGLOBIN (test code = HGB/ABG) G/DL 12.5-16.9 [id number] 12:54:00* Test Item Value Reference Range Interpretation Comme nts HEMATOCRIT (test code = HCT/ABG) % 37.5-50.7 POC IONIZED [id number] 12:54:00* Test Item Value Reference Range Interpretation Comme nts POC IONIZED CALCIUM (test co de = POCCA) 1.22 MMOL/L 1.12-1.32 N POC [id number] 12:54:00* Test Item Value Reference Range Interpretation Comme nts POC GLUCOSE (test code = POCGLU) MG/DL 70-110 [id number] 12:54:00* Test Item Value Reference Range Interpretation Comme nts SODIUM (test code = NA/ABG) 143 MEQ/L 134-147 N [id number] 12:54:00* Test Item Value Reference Range Interpretation Comme nts POTASSIUM (test code = K/ABG) 3.7 MEQ/L 3.4-5.0 N [id number] 12:54:00* Test Item Value Reference Range Interpretation Comme nts CHLORIDE (test code = CL/ABG) MEQ/L 100-108 CREATININE [id number] 12:54:00* Test Item Value Reference Range Interpretation Comme nts CREATININE ABG (test code = CREAABG) mg/dL 0.8-1.3 [id number] 12:54:00* Test Item Value Reference Range Interpretation Comme nts HEMOGLOBIN (test code = HGB/ABG) G/DL 12.5-16.9 [id number] 12:54:00* Test Item Value Reference Range Interpretation Comme nts HEMATOCRIT (test code = HCT/ABG) % 37.5-50.7 POC IONIZED [id number] 12:54:00* Test Item Value Reference Range Interpretation Comme nts POC IONIZED CALCIUM (test co de = POCCA) 1.22 MMOL/L 1.12-1.32 N POC [id number] 12:54:00* Test Item Value Reference Range Interpretation Comme nts POC GLUCOSE (test code = POCGLU) 113 MG/DL 70-110 H [id number] 12:54:00* Test Item Value Reference Range Interpretation Comme nts SODIUM (test code = NA/ABG) 143 MEQ/L 134-147 N [id number] 12:54:00* Test Item Value Reference Range Interpretation Comme nts POTASSIUM (test code = K/ABG) 3.7 MEQ/L 3.4-5.0 N [id number] 12:54:00* Test Item Value Reference Range Interpretation Comme nts CHLORIDE (test code = CL/ABG) MEQ/L 100-108 CREATININE [id number] 12:54:00* Test Item Value Reference Range Interpretation Comme nts CREATININE ABG (test code = CREAABG) mg/dL 0.8-1.3 [id number] 12:54:00* Test Item Value Reference Range Interpretation Comme nts HEMOGLOBIN (test code = HGB/ABG) G/DL 12.5-16.9 [id number] 12:54:00* Test Item Value Reference Range Interpretation Comme nts HEMATOCRIT (test code = HCT/ABG) 49 % 37.5-50.7 N POC IONIZED [id number] 12:54:00* Test Item Value Reference Range Interpretation Comme nts POC IONIZED CALCIUM (test co de = POCCA) 1.22 MMOL/L 1.12-1.32 N POC [id number] 12:54:00* Test Item Value Reference Range Interpretation Comme nts POC GLUCOSE (test code = POCGLU) 113 MG/DL 70-110 H [id number] 12:54:00* Test Item Value Reference Range Interpretation Comme nts SODIUM (test code = NA/ABG) 143 MEQ/L 134-147 N [id number] 12:54:00* Test Item Value Reference Range Interpretation Comme nts POTASSIUM (test code = K/ABG) 3.7 MEQ/L 3.4-5.0 N [id number] 12:54:00* Test Item Value Reference Range Interpretation Comme nts CHLORIDE (test code = CL/ABG) MEQ/L 100-108 CREATININE [id number] 12:54:00* Test Item Value Reference Range Interpretation Comme nts CREATININE ABG (test code = CREAABG) mg/dL 0.8-1.3 [id number] 12:54:00* Test Item Value Reference Range Interpretation Comme nts HEMOGLOBIN (test code = HGB/ABG) 16.6 G/DL 12.5-16.9 N [id number] 12:54:00* Test Item Value Reference Range Interpretation Comme nts HEMATOCRIT (test code = HCT/ABG) 49 % 37.5-50.7 N POC IONIZED [id number] 12:54:00* Test Item Value Reference Range Interpretation Comme nts POC IONIZED CALCIUM (test co de = POCCA) 1.22 MMOL/L 1.12-1.32 N POC [id number] 12:54:00* Test Item Value Reference Range Interpretation Comme nts POC GLUCOSE (test code = POCGLU) 113 MG/DL 70-110 H [id number] 12:54:00* Test Item Value Reference Range Interpretation Comme nts SODIUM (test code = NA/ABG) 143 MEQ/L 134-147 N [id number] 12:54:00* Test Item Value Reference Range Interpretation Comme nts POTASSIUM (test code = K/ABG) 3.7 MEQ/L 3.4-5.0 N [id number] 12:54:00* Test Item Value Reference Range Interpretation Comme nts CHLORIDE (test code = CL/ABG) 106 MEQ/L 100-108 N CREATININE [id number] 12:54:00* Test Item Value Reference Range Interpretation Comme nts CREATININE ABG (test code = CREAABG) mg/dL 0.8-1.3 [id number] 12:54:00* Test Item Value Reference Range Interpretation Comme nts HEMOGLOBIN (test code = HGB/ABG) 16.6 G/DL 12.5-16.9 N [id number] 12:54:00* Test Item Value Reference Range Interpretation Comme nts HEMATOCRIT (test code = HCT/ABG) 49 % 37.5-50.7 N POC IONIZED [id number] 12:54:00* Test Item Value Reference Range Interpretation Comme nts POC IONIZED CALCIUM (test co de = POCCA) 1.22 MMOL/L 1.12-1.32 N POC [id number] 12:54:00* Test Item Value Reference Range Interpretation Comme nts POC GLUCOSE (test code = POCGLU) 113 MG/DL 70-110 H [id number] 12:54:00* Test Item Value Reference Range Interpretation Comme nts SODIUM (test code = NA/ABG) 143 MEQ/L 134-147 N [id number] 12:54:00* Test Item Value Reference Range Interpretation Comme nts POTASSIUM (test code = K/ABG) 3.7 MEQ/L 3.4-5.0 N [id number] 12:54:00* Test Item Value Reference Range Interpretation Comme nts CHLORIDE (test code = CL/ABG) 106 MEQ/L 100-108 N CREATININE [id number] 12:54:00* Test Item Value Reference Range Interpretation Comme nts CREATININE ABG (test code = CREAABG) 0.9 mg/dL 0.8-1.3 N [id number] 12:54:00* Test Item Value Reference Range Interpretation Comme nts HEMOGLOBIN (test code = HGB/ABG) 16.6 G/DL 12.5-16.9 N - XR CHEST 2 [id number] 03:36:00FAX: Gerardo Schroeder MD [phone] [place]: St: REG Name: VICTORIANO CABEZAS MOO [facility] : 2000 Age/S: 18/M [address] [facility] Unit #: [id number] Loc: E.ERS[address] [place] [address] Phys: [place] [id number] Acct: [id number] Dis Date: Status: REG ER PHONE #: [phone] Exam Date: 01/25/2019310 FAX #: [phone] Reason: chest pain EXAMS: CPT CODE: [id number] XR CHEST 2 V 70458 EXAM: - XR CHEST 2 V HISTORY: Chest pain. COMPARISON: October 31, 2017. FINDINGS: PA and lateral view of the chest is provided. Heart size and vascularity are within normal limits. The lungs are clear of focalconsolidation. No effusion, pneumothorax, or acute osseous abnormality. IMPRESSION: No radiographicevidence of acute cardiopulmonary process. Electronically Signed by Colby Carcamo on01/25/2019 at 0336 Reported and signed by: Alvaro Carcamo M.D. CC: Gerardo Schroeder MD Technologist: MECHE DEL TORO Trnsdrd Date/Time/By: 01/25/2019 (0336) : By: [email or web address] PAGE 1 Signed Report FAX: Gerardo Schroeder MD [phone] [place]: St: REG Name: HAMILTONVICTORIANO CORTÉS [facility] : 2000 Age/S: 18/M [address] [facility] Unit #: [id number] Loc: [address] Phys: [place] [id number] Acct: [id number] Dis Date: Status: REG ER PHONE #: [phone] Exam Date: FAX #: [phone] Reason: chest pain EXAMS: CPT CODE: [id number] XR CHEST 2 V 41226 (Continued) Orig Print D/T: S: 01/25/2019 (0339) PAGE 2 Signed ReportDRUGS OF ABUSE SCREEN [id number] 00:57:00* Test Item Value Reference Range Interpretation Comme nts URN COCAINE (test code = COCAURN) NEGATIVE NEGATIVE Cocaine cut-off concentration: 300 ng/mL URN CANNABINOIDS (test code = CANNABURN) NEGATIVE NEGATIVE Cannabinoids c ut-off concentration: 50 ng/mL URN AMPHETAMINE (test code = AMPHETURN) NEGATIVE NEGATIVE Amphetamine cu t-off concentration: 1000 ng/mL URN BARBITURATE (test code = BARBITURN) NEGATIVE NEGATIVE Barbiturate cu t-off concentration: 200 ng/mL URN BENZODIAZEPINE (test code = BENZOURN) NEGATIVE NEGATIVE Benzodiaz epine cut-off concentration: 200 ng/mL URN OPIATES (test code = OPIATURN) NEGATIVE NEGATIVE Opiates cut-off concentration: 200 ng/mL URN PHENCYCLIDINE (PCP) (test code = PHENCURN) NEGATIVE NEGATIVE Phencycli dine(PCP) cut-off concentration: 25 ng/ml URN METHADONE (test code = METHAURN) NEGATIVE NEGATIVE Methadone cut-o ff concentration: 300 ng/mL URINALYSIS [id number] 00:40:00* Test Item Value Reference Range Interpretation Comme nts UA COLOR (test code = COLU) YELLOW UA APPEARANCE (test code = APPU) CLEAR UA GLUCOSE DIPSTICK (test code = DGLUU) NORMAL mg/dl NORMAL UA BILIRUBIN DIPSTICK (test code = BILU) NEGATIVE mg/dL NEGATIVE UA KETONE DIPSTICK (test code = KETU) 15 mg/dl mg/dl NEGATIVE A UA SPECIFIC GRAVITY (test code = SGU) 1.020 1.000-1.030 UA BLOOD DIPSTICK (test code = RAMSES) NEGATIVE Robert/micL NEGATIVE UA PH DIPSTICK (test code = ЕЛЕНА) 5.0 5.0-9.0 UA PROTEIN DIPSTICK (test code = PROU) 15 mg/dl mg/dl NEGATIVE A UA UROBILINIOGEN DIPSTICK (test code = URO) NORMAL mg/dl NORMAL UA NITRITE DIPSTICK (test code = JONELLE) NEGATIVE NEGATIVE UA LEUKOCYTE ESTERASE DIPSTICK (test code = LEUU) NEGATIVE Serge/micL NEGATIVE UA WBC (test code = WBCU) 0-3 WBC/HPF NONE UA RBC (test code = RBCU) 0-2 RBC/HPF 0-3 UA EPITHELIAL CELLS (test code = EPIU) 0-3 EPI/HPF 0-3 UA BACTERIA (test code = BACU) FEW NONE UA MUCUS (test code = MUCU) 1+ URINALYSIS [id number] 00:32:00* Test Item Value Reference Range Interpretation Comme nts UA COLOR (test code = COLU) YELLOW UA APPEARANCE (test code = APPU) CLEAR UA GLUCOSE DIPSTICK (test code = DGLUU) NORMAL mg/dl NORMAL UA BILIRUBIN DIPSTICK (test code = BILU) NEGATIVE mg/dL NEGATIVE UA KETONE DIPSTICK (test code = KETU) 15 mg/dl mg/dl NEGATIVE A UA SPECIFIC GRAVITY (test code = SGU) 1.020 1.000-1.030 UA BLOOD DIPSTICK (test code = RAMSES) NEGATIVE Robert/micL NEGATIVE UA PH DIPSTICK (test code = ЕЛЕНА) 5.0 5.0-9.0 UA PROTEIN DIPSTICK (test code = PROU) 15 mg/dl mg/dl NEGATIVE A UA UROBILINIOGEN DIPSTICK (test code = URO) NORMAL mg/dl NORMAL UA NITRITE DIPSTICK (test code = JONELLE) NEGATIVE NEGATIVE UA LEUKOCYTE ESTERASE DIPSTICK (test code = LEUU) NEGATIVE Serge/micL NEGATIVE UA WBC (test code = WBCU) WBC/HPF NONE UA RBC (test code = RBCU) RBC/HPF 0-3 UA EPITHELIAL CELLS (test code = EPIU) EPI/HPF 0-3 UA BACTERIA (test code = BACU) NONE Notes Date/Time Note Provider Source 2024-02-16 00:58:48 Pt given printed and verbal discharge instructions regarding self-care for headaches. Pt verbalized understanding of instructions, pt awake alert oriented, resp reg unlabored, skin w/d, color appropriate for race, moves all ext well,pt encouraged to follow up with pcp. Advised to seek medical attention for new/prolonged/worsening of symptoms. No adverse reaction to meds given in ER noted upon discharge. PIV d'cd, dressing to site, catheter in tact. Awake, alert oriented, resp reg unlabored, skin w/d, pt leaving amb with steady gait, in no apparent distress. [facility] 2024-02-15 22:59:09 Pt arrives ambulatory to ED c/o a "quivering/fluttering, and numbness" to the left side of head behind and around ear, x1 week. Denies pain or dizziness. T Kerline Leo RN [facility] 2024-02-15 22:55:00 [facility] Emergency Department Note Patient Name: Victoriano Cabezas Date of : 2000 23 year old male Treatment Room: Room/bed info not found Primary Care Physician: Bre Lane Patient Escorted by: Friend [6] Mode of Arrival: Personal means [1] EMS Treatment Prior to ED Arrival: RN VASCULAR treatment: None Travel and Exposure Screening: Symptoms Does patient have any of these symptoms?: (not recorded) Exposure Screening Has patient had contact with someone with a communicable disease in the last month?: (not recorded) Diseases exposed to:: (not recorded) Is Patient ?: (not recorded) Exposure Date: (not recorded) Chief Complaint: Chief Complaint Patient presents with Other Tremors around left ear History of Present Illness: The patient presents from home for eval for tremors to the left side of his head that have been coming and going for about a week. No injury or trauma. No blurry vision. No fevers. No ringing or wooshing in his ears. Hearing is normal. No weakness or tingling to arms. He reports the episodes last several minutes and then go away. They are occurring more frequently as the week has gone on. No meds for sx. He denies these sx in the past. Here for eval. Past Medical History/Immunizations: History reviewed. No pertinent past medical history. Tetanus received in last 5 years: No Allergies: No Known Allergies Past Social History: Tobacco Use Never smoked or used smokeless tobacco. Past Surgical History: Past Surgical History: Procedure Laterality Date GYNECOMASTIA EXCISION Bilateral 08/04/2015 Surgeon: Ute López MD; Location: [facility] Review of Systems: Review of Systems Constitutional: Negative for chills and fever. Eyes: Negative for photophobia. Respiratory: Negative for cough. Cardiovascular: Negative for chest pain. Gastrointestinal: Negative for abdominal pain. Genitourinary: Negative for dysuria. Musculoskeletal: Negative for arthralgias, neck pain and neck stiffness. Skin: Negative for wound. Neurological: Positive for headaches. Negative for dizziness. Psychiatric/Behavioral: Negative for agitation. Endocrine: Negative for goiter. Physical Exam: ED Triage Vitals [02/15/24 2301] Weight 130.2 kg (287 lb) Actual or estimated Estimated by patient/family report Height 1.778 m (5' 10") BP 134/88 Pulse 76 Resp 18 Temp 37.1 ?C (98.8 ?F) Temp source Oral SpO2 100 % Measured on Room air Physical Exam Vitals and nursing note reviewed. Constitutional: Appearance: Normal appearance. He is obese. HENT: Head: Normocephalic and atraumatic. Eyes: Extraocular Movements: Extraocular movements intact. Pupils: Pupils are equal, round, and reactive to light. Neck: Comments: No meningismus. No vertebral body tenderness to c-spine Cardiovascular: Rate and Rhythm: Normal rate. Pulses: Normal pulses. Pulmonary: Effort: Pulmonary effort is normal. No respiratory distress. Abdominal: General: There is no distension. Tenderness: There is no abdominal tenderness. Musculoskeletal: General: Normal range of motion. Cervical back: Normal range of motion and neck supple. No tenderness. Skin: General: Skin is warm. Neurological: General: No focal deficit present. Mental Status: He is alert and oriented to person, place, and time. Comments: Speech is clear No facial asymmetry Hand coo R=L MS 5/5 to UE and LE b/l Steady gait Radiology: CT ANGIOGRAM HEAD Preliminary Result CT ANGIOGRAM HEAD, CT ANGIOGRAM NECK PROVIDED INDICATION: 23 years-old Male; Cerebral vasospasm suspected . ADDITIONAL HISTORY OBTAINED FROM ELECTRONIC MEDICAL RECORD: Numbness to left side of head. COMPARISON: None TECHNIQUE: CT angiography of the head and neck was performed after the administration of IV contrast with MIPS, coronal and sagittal reconstructions. Vascular measurements of stenosis were made according to the NASCET criteria. FINDINGS: Exam is limited due to contrast bolus timing and starvation artifact. CTA NECK: Classic three vessel branching anatomy of the aortic arch. The arch vessel origins are patent and unremarkable. The innominate and bilateral subclavian arteries are patent. The right common and internal carotid arteries are patent and unremarkable. There is no significant carotid atherosclerosis. The left common and internal carotid arteries are patent and unremarkable. There is no significant carotid atherosclerosis. The right vertebral artery is patent throughout it's course up to the vertibrobasilar junction. The left vertebral artery is patent throughout it's course up to the vertibrobasilar junction. No evidence of dissection or pseudoaneurysm. CTA HEAD: The PICA origin is visualized bilaterally. The basilar artery is normal in caliber. The superior cerebellar arteries are unremarkable. The posterior cerebral arteries are unremarkable. Bilateral P-comms appear unremarkable. No significant intracranial atherosclerotic disease. The distal cervical, petrous, cavernous and supraclinoid internal carotid arteries are unremarkable. The anterior and middle cerebral arteries are unremarkable. An anterior communicating artery is visualized. IMPRESSION Exam is significantly degraded due to starvation artifact and contrast bolus timing. Within those limitations, no large vessel occlusions or significant atherosclerotic disease. Preliminary Report Dictated by Resident: Chapo Phillips CT ANGIOGRAM NECK Preliminary Result CT ANGIOGRAM HEAD, CT ANGIOGRAM NECK PROVIDED INDICATION: 23 years-old Male; Cerebral vasospasm suspected . ADDITIONAL HISTORY OBTAINED FROM ELECTRONIC MEDICAL RECORD: Numbness to left side of head. COMPARISON: None TECHNIQUE: CT angiography of the head and neck was performed after the administration of IV contrast with MIPS, coronal and sagittal reconstructions. Vascular measurements of stenosis were made according to the NASCET criteria. FINDINGS: Exam is limited due to contrast bolus timing and starvation artifact. CTA NECK: Classic three vessel branching anatomy of the aortic arch. The arch vessel origins are patent and unremarkable. The innominate and bilateral subclavian arteries are patent. The right common and internal carotid arteries are patent and unremarkable. There is no significant carotid atherosclerosis. The left common and internal carotid arteries are patent and unremarkable. There is no significant carotid atherosclerosis. The right vertebral artery is patent throughout it's course up to the vertibrobasilar junction. The left vertebral artery is patent throughout it's course up to the vertibrobasilar junction. No evidence of dissection or pseudoaneurysm. CTA HEAD: The PICA origin is visualized bilaterally. The basilar artery is normal in caliber. The superior cerebellar arteries are unremarkable. The posterior cerebral arteries are unremarkable. Bilateral P-comms appear unremarkable. No significant intracranial atherosclerotic disease. The distal cervical, petrous, cavernous and supraclinoid internal carotid arteries are unremarkable. The anterior and middle cerebral arteries are unremarkable. An anterior communicating artery is visualized. IMPRESSION Exam is significantly degraded due to starvation artifact and contrast bolus timing. Within those limitations, no large vessel occlusions or significant atherosclerotic disease. Preliminary Report Dictated by Resident: Chapo Phillips CT HEAD WO CONTRAST Preliminary Result EXAM: CT HEAD WO CONTRAST HISTORY: 23 years-old Male; Provided indication: left head pain . History obtained from [facility]: "Quivering/fluttering and numbness" to the left side of the head and around ear for one week. TECHNIQUE: Axial CT of the head was performed and reconstructed at 5 mm intervals. Coronal and sagittal reformatted images were generated. COMPARISON: None FINDINGS: The ventricles and cerebral sulci are normal in caliber and configuration. No midline shift or pathological extra-axial fluid collection is present. The basal cisterns are unremarkable. No acute intracranial hemorrhage or significant mass effect is visualized. No parenchymal attenuation abnormality is seen. The henderson-white matter differentiation is preserved. The mastoid air cells and paranasal air sinuses are clear. The calvarium and central skull base are unremarkable. IMPRESSION No acute intracranial abnormality. Preliminary Report Dictated by Resident: Chapo Phillips Lab Results: Lab Results CBC WITH DIFF - Abnormal Result Value Ref Range WBC 10.82 (*) 4.20 - 10.70 10*3/?L RBC 4.50 4.26 - 5.52 10*6/?L HGB 13.1 12.2 - 16.4 g/dL HCT 39.2 38.4 - 49.3 % MCV 87.1 81.7 - 95.6 fL MCH 29.1 26.1 - 32.7 pg MCHC 33.4 31.2 - 35.0 g/dL RDW-SD 41.0 38.5 - 51.6 fL RDW-CV 13.0 12.1 - 15.4 % PLT 249 150 - 328 10*3/?L MPV 10.6 9.8 - 13.0 fL NRBC/100 WBC 0.0 0.0 - 10.0 /100 WBCs NRBC x10 3 <0.01 10*3/?L GRAN MAT (NEUT) % 57.3 % IMM GRAN % 0.30 % LYMPH % 33.6 % MONO % 7.8 % EOS % 0.6 % BASO % 0.4 % GRAN MAT x10 3 (ANC) 6.20 1.99 - 6.95 10*3/uL IMM GRAN x10 3 0.03 0.00 - 0.06 10*3/uL LYMPH x10 3 3.64 (*) 1.09 - 3.23 10*3/uL MONO x10 3 0.84 0.36 - 1.02 10*3/uL EOS x10 3 0.07 0.06 - 0.53 10*3/uL BASO x10 3 0.04 0.01 - 0.09 10*3/uL BASIC METABOLIC PANEL (NA, K, CL, CO2, GLUCOSE, BUN, CREATININE, CA) NA 138 135 - 145 mmol/L K 3.7 3.5 - 5.0 mmol/L CL 102 98 - 108 mmol/L CO2 TOTAL 30 23 - 31 mmol/L AGAP 6 2 - 16 BUN 16 7 - 23 mg/dL GLUCOSE 87 70 - 110 mg/dL CREATININE 0.84 0.60 - 1.25 mg/dL CALCIUM 9.1 8.6 - 10.6 mg/dL eGFR 125.7 mL/min/1.73m2 EKG: If EKG completed, see Procedure Note. Orders and Treatments: Orders Placed This Encounter Procedures CT HEAD WO CONTRAST CT ANGIOGRAM HEAD CT ANGIOGRAM NECK CBC WITH DIFF BASIC METABOLIC PANEL (NA, K, CL, CO2, GLUCOSE, BUN, CREATININE, CA) Orders Placed This Encounter Medications metoclopramide HCl (REGLAN) injection 10 mg diphenhydrAMINE (BENADRYL) injection 25 mg dexamethasone sod phos PF injection 10 mg NaCl 0.9% (NS) bolus infusion 1,000 mL iopamidol (ISOVUE 370-500 mL) injection 100 mL First Provider Eval: ED Events Date/Time Event User Comments 02/15/242256 Medical Screening Begins ROSA LEO DO -- 02/15/242256 First Provider Evaluation ROSA LEO DO -- ED COURSE Diagnosis/Impression as of 02/16/243 Acute nonintractable headache, unspecified headache type Procedures: Procedures MDM: Medical Decision Making The patient presents from home for eval for tremors to the left side of his head that have been coming and going for about a week. No injury or trauma. No blurry vision. No fevers. No ringing or wooshing in his ears. Hearing is normal. No weakness or tingling to arms. He reports the episodes last several minutes and then go away. They are occurring more frequently as the week has gone on. No meds for sx. He denies these sx in the past. VSS here in the EC. Neck is supple and without meningismus. Speech is clear No facial asymmetry Hand coo R=L MS 5/5 to UE and LE b/l. Steady gait. No concern for infectious etiology. Will obtain imaging to eval for possible aneurysm. Will give pain meds. Final dispo pending. 0042 - the patient is doing well here in the EC. He has had no further episodes since he was given medication here in the EC. CT head shows no acute intracranial tumors/masses. CTA head and neck show no vascular issues. He remains stable here in the EC and is ok for dc home with pcp f/u. Problems Addressed: Acute nonintractable headache, unspecified headache type: acute illness or injury Amount and/or Complexity of Data Reviewed Labs: ordered. Decision-making details documented in ED Course. Radiology: ordered and independent interpretation performed. Decision-making details documented in ED Course. Risk OTC drugs. Prescription drug management. Flowsheet Documentation: Scoring Tools: No data recorded Disposition/Condition: ED Disposition ED Disposition Disch - Home Condition Stable Comment -- Discharge Medications: Patient's Medications START taking these medications No medications on file CONTINUE taking these medications which have NOT CHANGED ALBUTEROL 2.5 MG /3 ML (0.083 %) NEBULIZER SOLUTION Inhale 3 mL every 4 (four) hours as needed for Wheezing or Shortness of Breath. May also nebulize one extra every 6 hours. CEPHALEXIN (KEFLEX ORAL) Take 500 mg by mouth. DICYCLOMINE 20 MG TABLET Take 1 tablet by mouth 4 (four) times daily as needed for Abdominal pain. HYDROCODONE-ACETAMINOPHEN (NORCO 5) 5-325 MG TABLET Take 1 Tab by mouth every 6 (six) hours as needed. KETOROLAC 10 MG TABLET Take 1 tablet by mouth every 6 (six) hours as needed for Pain (scale 7-10). START taking Modified Medications as Prescribed No medications on file STOP taking these medications No medications on file Follow-up: Electronically signed by: Rosa Leo DO 02/16/[address] [facility] 2023-08-01 02:16:05 Pt given printed and verbal discharge instructions regarding enteritis, encouraged hydration, Prescriptions provided Pt verbalized understanding of instructions, pt awake alert oriented, resp reg unlabored, skin w/d, color appropriate for race, moves all ext well,pt encouraged to follow up with pcp. Advised to seek medical attention for new/prolonged/worsening of symptoms. No adverse reaction to meds given in ER noted upon discharge. PIV d'cd, dressing to site, catheter in tact. Awake, alert oriented, resp reg unlabored, skin w/d, pt leaving amb with steady gait, in no apparent distress. IE Rosario RN [facility] 2023-07-31 23:39:50 Pt states " Im having this real bad pain right above my stomach. 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 2023-07-31 23:34:00 [facility] Emergency Department Note Patient Name: Victoriano Cabezas Date of : 2000 23 year old male Treatment Room: [facility] [place] Primary Care Physician: No primary care provider on file. Patient Escorted by: Family [5] Mode of Arrival: Personal means [1] EMS Treatment Prior to ED Arrival: RN VASCULAR treatment: Medication (comment) RN VASCULAR treatment comments: tylenol around 2200 Travel and Exposure Screening: Symptoms Does patient have any of these symptoms?: (not recorded) Exposure Screening Has patient had contact with someone with a communicable disease in the last month?: (not recorded) Diseases exposed to:: (not recorded) Is Patient ?: (not recorded) Exposure Date: (not recorded) Chief Complaint: Chief Complaint Patient presents with Abdominal Pain History of Present Illness: HPI Past Medical History/Immunizations: No past medical history on file. Tetanus received in last 5 years: No Allergies: No Known Allergies Past Social History: Tobacco Use Never smoked or used smokeless tobacco. Past Surgical History: Past Surgical History: Procedure Laterality Date GYNECOMASTIA EXCISION Bilateral 08/04/2015 Surgeon: Ute López MD; Location: [facility] Review of Systems: Review of Systems Physical Exam: ED Triage Vitals [07/31/23 2342] Weight 128.4 kg (283 lb) Actual or estimated Height 1.753 m (5' 9") BP 138/80 Pulse 90 Resp 18 Temp 37.2 ?C (99 ?F) Temp source Oral SpO2 98 % Measured on Room air Physical Exam Radiology: CT ABDOMEN PELVIS W CONTRAST Final Result Exam: CT Abdomen and Pelvis With Contrast, 08/01/2023 12:00 AM. Ordering Physician: ANNA MARTINEZ. History: Abdominal abscess/infection suspected . Comparison: None. Technique: CT abdomen and pelvis was obtained with intravenous contrast. CT was performed according to ALARA (As Low As Reasonably Achievable). Technical Quality: Adequate. Findings: LOWER CHEST: Normal . ABDOMEN/PELVIS: LiverNormal.l. Gallbladder/biliaryNormal gallbladder.rNo biliary ductal dilation.n. PancreasNormal.l. SpleenNormal.l. Adrenal glandsNormal.l. Kidneys and uretersNormal.l. BladderNormal.l. Reproductive organsNormal for age.e. Stomach/bowel: Bowel is decompressed. Normal appendix. Prominent number of nonenlarged mesenteric nodes. Lymph nodesNo lymphadenopathy.y. PeritoneumNo intraperitoneal free air.rNo intraperitoneal free fluid.d. VesselsNormal. MUSCULOSKELETAL: BonesNo acute osseous abnormality.y. The anterior disc space loss and osseous bridging of T11-T11 vertebral body. Soft tissuesUnremarkable.e. IMPRESSION Impression: Decompressed bowel with reactive mesenteric nodes likely related to gastrointestinal illness. RL: 1825 End of Report Lab Results: Lab Results COMP. METABOLIC PANEL (68876) - Abnormal Result Value Ref Range NA 138 135 - 145 mmol/L K 4.0 3.5 - 5.0 mmol/L CL 105 98 - 108 mmol/L CO2 TOTAL 29 23 - 31 mmol/L AGAP 4 2 - 16 BUN 13 7 - 23 mg/dL GLUCOSE 92 70 - 110 mg/dL CREATININE 0.72 0.60 - 1.25 mg/dL TOTAL BILI 0.8 0.1 - 1.1 mg/dL CALCIUM 9.0 8.6 - 10.6 mg/dL T PROTEIN 8.1 6.3 - 8.2 g/dL ALBUMIN 4.3 3.5 - 5.0 g/dL ALK PHOS 85 34 - 122 U/L ALTv 32 5 - 50 U/L AST(SGOT) 41 (*) 13 - 40 U/L eGFR 131.7 mL/min/1.73m2 URINALYSIS - Abnormal APPEARANCE Clear Clear COLOR Yellow Yellow PH 5.0 4.8 - 8.0 SP GRAVITY 1.010 1.003 - 1.030 GLU U QUAL Normal Normal BLOOD Negative Negative KETONES Negative Negative PROTEIN Negative Negative UROBILIN Normal Normal BILIRUBIN Negative Negative NITRITE Negative Negative LEUK ANDREINA 25/uL (*) Negative RBC/HPF 2 0 - 3 HPF WBC/HPF 7 (*) 0 - 5 HPF BACTERIA Negative Negative SQ EPITH 1 HPF LIPASE - Normal LIPASE 87 0 - 220 U/L LIPID PANEL (09324)(TOTAL CHOLESTEROL, TRIGLYCERIDES, HDL) - Normal CHOL 188 120 - 200 mg/dL HDL 46 >40 mg/dL HDLC RATIO 4.1 <=5.0 TRIG 113 30 - 170 mg/dL LDL CHOL 119 <=160 mg/dL VLDL 23 5 - 60 mg/dL CBC WITH DIFF WBC 8.11 4.20 - 10.70 10*3/?L RBC 4.62 4.26 - 5.52 10*6/?L HGB 13.6 12.2 - 16.4 g/dL HCT 39.6 38.4 - 49.3 % MCV 85.7 81.7 - 95.6 fL MCH 29.4 26.1 - 32.7 pg MCHC 34.3 31.2 - 35.0 g/dL RDW-SD 39.2 38.5 - 51.6 fL RDW-CV 12.7 12.1 - 15.4 % PLT 242 150 - 328 10*3/?L MPV 10.6 9.8 - 13.0 fL NRBC/100 WBC 0.0 0.0 - 10.0 /100 WBCs NRBC x10 3 <0.01 10*3/?L GRAN MAT (NEUT) % 52.0 % IMM GRAN % 0.20 % LYMPH % 37.0 % MONO % 8.1 % EOS % 2.3 % BASO % 0.4 % GRAN MAT x10 3 (ANC) 4.21 1.99 - 6.95 10*3/uL IMM GRAN x10 3 <0.03 0.00 - 0.06 10*3/uL LYMPH x10 3 3.00 1.09 - 3.23 10*3/uL MONO x10 3 0.66 0.36 - 1.02 10*3/uL EOS x10 3 0.19 0.06 - 0.53 10*3/uL BASO x10 3 0.03 0.01 - 0.09 10*3/uL EKG: If EKG completed, see Procedure Note. Orders and Treatments: Orders Placed This Encounter Procedures CT ABDOMEN PELVIS W CONTRAST Cbc with Diff Comp. Metabolic Panel (36592) Lipase Lipid Panel (56345)(Total Cholesterol, Triglycerides, HDL) Urinalysis Orders Placed This Encounter Medications ondansetron (ZOFRAN (PF)) injection 4 mg pantoprazole (PROTONIX) 80 mg in NaCl 0.9% (NS) 20 mL syringe iopamidol (ISOVUE 370-500 mL) injection 100 mL dicyclomine 20 mg tablet First Provider Eval: ED Events None ED COURSE Diagnosis/Impression as of 08/01/23 0146 Epigastric pain Enteritis Procedures: Procedures MDM: Medical Decision Making Victoriano Cabezas is a 23 year old male with epigastric pain. Normal GB. Normal bili. No leukocytosis. Possible enteritis. Home with bentyl. Problems Addressed: Epigastric pain: acute illness or injury Amount and/or Complexity of Data Reviewed Labs: ordered. Radiology: ordered. Risk Prescription drug management. Flowsheet Documentation: Scoring Tools: No data recorded Disposition/Condition: ED Disposition ED Disposition Disch - Home Condition Stable Comment -- Discharge Medications: Patient's Medications START taking these medications DICYCLOMINE 20 MG TABLET Take 1 tablet by mouth 4 (four) times daily as needed for Abdominal pain. CONTINUE taking these medications which have NOT CHANGED ALBUTEROL 2.5 MG /3 ML (0.083 %) NEBULIZER SOLUTION Inhale 3 mL every 4 (four) hours as needed for Wheezing or Shortness of Breath. May also nebulize one extra every 6 hours. CEPHALEXIN (KEFLEX ORAL) Take 500 mg by mouth. HYDROCODONE-ACETAMINOPHEN (NORCO 5) 5-325 MG TABLET Take 1 Tab by mouth every 6 (six) hours as needed. KETOROLAC 10 MG TABLET Take 1 tablet by mouth every 6 (six) hours as needed for Pain (scale 7-10). START taking Modified Medications as Prescribed No medications on file STOP taking these medications No medications on file Follow-up: Electronically signed by: Anna Martinez DO 08/01/23145 [facility] 2022-11-04 19:37:00 [facility] ([facility]) EMERGENCY PROVIDER REPORT REPORT#:[id number] REPORT STATUS: Signed DATE:11/04/22 TIME: 1936 PATIENT: VICTORIANO CABEZAS UNIT #: [id number] ROOM/BED: AGE: 22 SEX: M PCP PHYS: No Primary or Family Physician SERVICE AUTHOR: Randal Cabezas MD * ALL edits or amendments must be made on the electronic/computer document * HPI-Chest Pain Under 40 General Initial Greet Date/Time 11/04/221910 Presentation Chief Complaint chest wall pain Free Text HPI Notes Free Text HPI Notes Patient 22-year-old male present with chief concern of chest wall pain. Patient with left lateral chest wall pain this problem for last few days. Patient denying headache vision change or other associate symptoms. Patient with no other acute symptoms at this time. Patient notes that symptoms are worse when pressing with his arm. Patient denying any accident injury or trauma. Patient denying any other acute symptoms at this time. Patient with no shortness of breath. Patient notes that whenever he takes a deep breath worsens the superficial chest wall pain. Patient without cough congestion fevers or chills Risk-Chest Pain Under 40 Risk Stratification PERC Rule No: Age 50 or over, Heart rate 100 or over, O2 sat on RA < 95%, Prior Hx of DVT/ PE, Recent trauma or surgery, Hemoptysis, Exogenous estrogen use, Unilateral leg swelling. PERC Result All PERC criteria "No", PERC rule satisfied Review of Systems Free Text ROS Notes Free Text ROS Notes 1.Constitutional: No fever, No chills, No weight loss, No fatigue 2. Head: No trauma, or No Headache 3. Eyes: No eye pain, No eye redness 4. Ears, nose, mouth, throat: no sore throat, no ear pain, no tooth pain, no nasal congestion 5. Cardiovascular: no chest pain or discomfort, no palpitations, endorses chest wall pain 6. Respiratory: no [id number], no cough 7. GI: No nausea, no vomiting, no diarrhea, no constipation, no abdominal pain 8 .: Denies dysuria, No hematuria, denies flank pain, denies reproductive organ pain/discomfort 8. Musculoskeletal: no muscle pain, no swelling 9. Skin: No rash, no itching 10. Neurologic: No weakness or numbness. 11.Back: No Back Pain, No back trauma 12. Psychiatric: No suicidal ideation, No homicidal Ideation, no hallucinations Past Medical History - Adult Stated Complaint LEFT SIDE RIB PAIN Allergies Coded Allergies: No Known Allergies (11/04/22) Pt reports no significant: Family history Past Medical History: Reports: Headache disorder. Past Surgical History: Reports: Appendectomy. Additional Surgical History shoulder, double mastectomy Alcohol Use Denies EtOH use Smoking status for patients 13 years old or older: Current some day smoker Physical Exam Vital Signs Vital Signs First Documented: Result Date Time Pulse Ox 100 11/04 1910 B/P 132/72 11/04 1910 B/P Mean 92 11/04 1910 O2 Delivery Room air 11/04 1910 Temp 36.4 11/04 1910 Pulse 92 11/04 1910 Resp 16 11/04 1910 Last Documented: Result Date Time Pulse Ox 100 11/04 2021 B/P 128/74 11/04 2021 B/P Mean 92 11/04 2021 Temp 36.6 11/04 2021 Pulse 86 11/04 2021 Resp 16 11/04 2021 O2 Delivery Room air 11/04 1910 Review of Vital Signs Reviewed Free Text PE Notes Free Text PE Notes General Appearance: Alert, Oriented, Resting Comfortably, No Apparent Distress Eyes: Normal Inspection, PERRL, EOMI Head Ears Nose and Throat: Normocephalic, Atraumatic, Normal ENT inspection Neck: Supple, Normal Inspection Lymphatic: No lymphadenopathy Respiratory: Lungs Clear to auscultation bilaterally Cardiovascular: Regular Rate, Regular Rhythm, No Murmur, No Rubs Peripheral Pulses: DP/PT pulses normal bilaterally Normal: Left Carotid, Lower Extremities, Right Carotid Abdomen: Soft, Non-Tender, Non-Distended, Normal Bowel Sounds, No Organomegaly, No Guarding Extremities: No Clubbing, No Cyanosis, No Edema Psych/Mental Status: Normal Affect Neurologic: Alert, Oriented to Person, Oriented to Place, Oriented to Time, Cranial Nerves II - XII Intact, Follows commands Motor/Sensory: No Motor Deficit, No Sensory Deficit Skin: Warm/Dry, Normal Color, No Rashes Interpretation Diagnostics Lab Results Interpretation Considerations Independ review imaging Results Recent Impressions: RADIOLOGY - XR RIBS UNI W/CXR 3+V LT 11/05 1927 Report Impression - Status: SIGNED Entered: 11/04/20221946 IMPRESSION: Unremarkable radiographic examination of the chest. Inspiratory effort is suboptimal. Unremarkable left rib series. Impression By: [email or web address] - Tho L Byron, M.D. Imaging Statement Radiographic studies reviewed and considered in the medical decision-making. Re-Evaluation MDM Free Text MDM Notes Free Text MDM Notes Patient 22-year-old male present with chief concern of chest wall pain. Patient headache vision change or other associate symptoms. Patient underwent x-ray to rule out acute process such as chondritis pleurisy rib fracture pneumothorax among others. Patient pending x-ray results prior to discharge. ED Course Medication(s) Ordered Medication(s) Ordered: Autonomic Drugs Sig/Caleb Start time Last Medication Dose Route Stop Time Status Admin Cyclobenzaprine HCl 10 MG X1ED STA 11/05 1915 DC 11/04 PO 11/04 Central Nervous System Agents Sig/Caleb Start time Last Medication Dose Route Stop Time Status Admin Ketorolac 10 MG X1ED STA 11/05 1915 DC 11/04 Tromethamine PO 11/04 Eye, Ear, Nose And Throat (Een Sig/Caleb Start time Last Medication Dose Route Stop Time Status Admin Dexamethasone 4 MG X1ED STA 11/04 1916 DC 11/04 PO 11/04 Differential Diagnosis )( Differential Diagnosis Acute coronary syndrome, Acute myocardial infarct, Anxiety disorder, Aortic dissection, Aortic stenosis, Asthma exacerbation, Bronchitis, Chest pain, Chest pain, acute, Cholecystitis, Cholelithiasis, Congestive heart failure, Contusion, Costochondritis, Dysrhythmia, Esophageal rupture, Esophagitis, Gastritis, GERD, Gun shot wound chest, Hiatal hernia, Hypertroph cardiomyopathy, Simin-Hooks syndrome, Mitral stenosis, Mitral valve prolapse, Musculoskeletal pain, Myocardial infarction, Myocarditis, Peptic ulcer disease, Pericarditis, Pleurisy, Pneumomediastinum, Pneumonia, Pneumothorax, Pulmonary edema, Pulmonary embolism, Rib fracture, Stab wound chest, Stable angina, Unstable angina Patient Discharge Departure Vital Signs/Condition Vital Signs First Documented: Result Date Time Pulse Ox 100 11/04 1910 B/P 132/72 11/04 1910 B/P Mean 92 11/04 1910 O2 Delivery Room air 11/04 1910 Temp 36.4 11/04 1910 Pulse 92 11/04 1910 Resp 16 11/04 1910 Last Documented: Result Date Time Pulse Ox 100 11/04 2021 B/P 128/74 11/04 2021 B/P Mean 92 11/04 2021 Temp 36.6 11/04 2021 Pulse 86 11/04 2021 Resp 16 11/04 2021 O2 Delivery Room air 11/04 1911 All vital signs available at the time of this entry have been reviewed. Condition Stable, Improved Clinical Impression Clinical Impression Primary Impression: Pleurisy Secondary Impressions: Chest pain, unspecified, Costochondritis Disposition Decision Discharge )( Discharged to Home Yes )( Time 1953 )( Date 11/04/22 Discharge/Care Plan Counseled Regarding Diagnosis, Lab results, Imaging studies, Medication changes, Prescriptions, Need for follow-up, When to return to ED (Auto) Prescriptions Current Visit Scripts ACETAMINOPHEN (TYLENOL) 1,000 MG PO Q6H PRN PRN Fever/Pain ACETAMINOPHEN (TYLENOL) 1,000 MG PO Q6H PRN PRN Fever/Pain #30 TABS Follow label instructions for pain or fever. CYCLOBENZAPRINE HCL (FLEXERIL) 5 MG PO TID PRN PRN MUSCLE SPASMS/PAIN CYCLOBENZAPRINE HCL (FLEXERIL) 5 MG PO TID PRN PRN MUSCLE SPASMS/PAIN #15 TAB LIDOCAINE (LIDODERM 5%) 1 PATCH TRANSDERM DAILY LIDOCAINE (LIDODERM 5%) 1 PATCH TRANSDERM DAILY #30 PATCHES KETOROLAC (TORADOL) 10 MG PO Q6H PRN PRN PAIN KETOROLAC (TORADOL) 10 MG PO Q6H PRN PRN PAIN #20 TABS ASPIRIN EC (ECOTRIN) 81 MG PO DAILY ASPIRIN EC (ECOTRIN) 81 MG PO DAILY #30 TABS Prescriptions Reviewed Risks, Benefits, Alternative treatment Patient Instructions ED Chest Pain, Uncertain Cause, ED Chest Wall Pain, Costochondritis, ED Pleurisy Additional Instructions 1. The examination and treatment that you have received has been on an emergency basis only and is not intended as an effort to provide complete medical care. It is impossible to recognize and treat all elements of an illness or injury in a single ER visit. 2. Thank you for allowing us to provide emergent medical care to you or your family member. We consider it a privilege to have served you during your illness or injury. 3. If you have received a prescription, please fill it TODAY and follow the instructions carefully. 4. Return to the ER for worsening symptoms. 5. Follow up with your family doctor Referrals Resource Referral: [facility] Address: [address] [place] [address] Provider Referral: Rossy Presley MD Address: [address] [place] [phone] Resource Referral: [facility] Address: [address] [place] [phone] Provider Referral: Maci Rucker Address: [address] [place] [address] Departure Forms FREE OR [facility] PCP LIST [place] [facility] FREE OR [facility] WORK[employer]SCHOOL EXCUSE VARIABLE Discharge Note I have spoken with the patient and/or caregivers. I have explained the patient's condition, diagnoses and treatment plan based on the information available to me at this time. I have answered the patient's and/or caregiver's questions and addressed any concerns. The patient and/or caregivers have as good an understanding of the patient's diagnosis, condition and treatment plan as can be expected at this point. The vital signs have been stable. The patient's condition is stable and appropriate for discharge from the emergency department. The patient will pursue further outpatient evaluation with the primary care physician or other designated or consulting physician as outlined in the discharge instructions. The patient and/or caregivers are agreeable to this plan of care and follow-up instructions have been explained in detail. The patient and/or caregivers have received these instructions in written format and have expressed an understanding of the discharge instructions. The patient and/or caregivers are aware that any significant change in condition or worsening of symptoms should prompt an immediate return to this or the closest emergency department or a call to 911. at 2124 RPT #:[id number] END OF REPORT [facility] 2019-03-27 12:25:00 [facility] ([facility] EMERGENCY PROVIDER REPORT REPORT#:[id number] REPORT STATUS: Signed DATE:03/27/19 TIME: 1225 PATIENT: VICTORIANO CABEZAS UNIT #: [id number] ROOM/BED: AGE: 18 SEX: M PCP PHYS: No Primary or Family Physician SERVICE AUTHOR: Nohemy Ac MD * ALL edits or amendments must be made on the electronic/computer document * HPI-Abd Pain M Under 40 General Confirmed Patient Yes Initial Greet Date/Time 03/27/191215 Presentation Chief Complaint Abdominal pain, Vomiting mild Free Text HPI Notes Free Text HPI Notes 18 yo male with no reported medical or surgical history presents for abdominal cramping and multiple episodes of vomiting since last night. Patient states that he ate gumbo for dinner and developed diffuse6/10 abdominal cramping and had 4 episodes of vomiting since then, last time being a few hours ago. Denies blood in vomit, denies diarrhea. States family member who ate similar meal did not have any symptoms. Denies fever, chest pain, sob, blood in stool, other acute symptoms. Risk-Abd Pain M Under 40 )( Torsion Risk factors reviewed Review of Systems Focused Review of Systems Constitutional Denies: Chills, Fatigue, Fever. Respiratory Denies: Shortness of breath. Cardiovascular Denies: Chest pain, Dyspnea on exertion, Edema. GI Reports: Abdominal pain, Nausea, Vomiting. Denies: Bloody/tarry stool, Diarrhea. Male Denies: Dysuria, Flank pain, Hematuria. Musculoskeletal Denies: Back pain, Extremity pain. Additional Review of Systems Hematologic Denies: Adenopathy. Endocrine Denies: Polyuria. Skin Denies: Diaphoresis. Neurologic Denies: Change LOC. Past Medical History - Adult Stated Complaint vomiting Allergies Coded Allergies: No Known Allergies (01/25/19) Home Medications Reported Medications No Known Home Medications Pt reports no significant: Past medical history, Past surgical history, Family history Alcohol Use Denies EtOH use Smoking status for patients 13 years old or older: Current some day smoker Physical Exam Vital Signs Vital Signs First Documented: Result Date Time Pulse Ox 97 03/27 1215 B/P 143/79 03/27 1215 B/P Mean 100 03/27 1215 O2 Delivery Room air 03/27 1215 Temp 36.9 03/27 1215 Pulse 98 03/27 121 Resp 18 03/27 1215 Last Documented: Result Date Time Pulse Ox 97 03/275 B/P 143/79 03/27 1215 B/P Mean 100 03/27 1215 O2 Delivery Room air 03/27 1215 Temp 36.9 03/27 1215 Pulse 98 03/27 1215 Resp 18 03/27 1215 Review of Vital Signs Vital signs normal Focused PE General/Const General/Const Awake, Alert, No acute distress, Well appearing, Well developed , Cooperative MS Head Head Atraumatic, Normocephalic Ears/Nose/Throat Mouth Mucous membranes dry. Resp/Chest Respiratory/Chest Atraumatic, Breath sounds NL, Breath sounds = bilat, No respiratory distress Cardiovascular Cardiovascular Heart rate NL, Regular rhythm, Heart sounds NL Abdomen/GI Abdomen/GI Atraumatic, Soft Tenderness/Guarding/Rebound Tender LLQ (minimal). MS Back Back Atraumatic, Inspection NL, Painless range of motion Skin Skin Atraumatic, Color NL Neurologic Neurologic Oriented X3, Speech NL Interpretation Diagnostics Lab Results Interpretation Considerations Independ review imaging Results Laboratory Tests: 03/27 1252 Blood Gas ABG Hematocrit (37.5 - 50.7 %) 49 ABG Hemoglobin (12.5 - 16.9 G/DL) 16.6 Sodium (134 - 147 MEQ/L) 143 Potassium (3.4 - 5.0 MEQ/L) 3.7 Chloride (100 - 108 MEQ/L) 106 Ionized Calcium (1.12 - 1.32 MMOL/L) 1.22 Chemistry POC Creatinine (0.8 - 1.3 mg/dL) 0.9 POC Glucose (mg/dL) (70 - 110 MG/DL) 113 H Recent Impressions: CAT SCAN - CT ABD PELVIS W/CONT 03/27 1338 Report Impression - Status: SIGNED Entered: 03/27/2019 1400 IMPRESSION: 1. Fatty proliferation is noted involving the hepatic flexure colonic wall with adjacent haziness of the fat. Findings may represent subtle acute on chronic inflammatory process involving the hepatic flexure. 2. Normal appendix. 3. Moderate disc space narrowing at T10-T11 level. SL: [id number] Impression By: [email or web address] - Simon Burk D.O. Lab Imaging Statement Laboratory radiographic studies reviewed and considered in the medical decision-making. Point of Care Testing Pulse Oximetry Pulse Ox % 97 On: Room air Interpretation Interpreted by me, Pulse oximetry normal Re-Evaluation MDM Free Text MDM Notes Free Text MDM Notes 18 yo healthy male who developed abd cramping and n/v after eating gumbo. welll appearing on exam, minimal LLQ tenderness, will check labs and tx symptomatically. No RUQ or RLQ tenderness, low suspicion for appendicitis or cholecystitis. )( Re-Evaluation/Progress #1 Text/Dict Note nausea improved, but still having 5/10 pain after toradol. on repeat abdominal examination patient now also has RLQ tenderness and LLQ. will evaluate with CT Time of Re-Eval 1250 )( Re-Eval Status Unchanged Re-Evaluation/Progress #2 Text/Dict Note labwork unremarkable. CT revealed normal appendix. small area of fat proliferation. patient is well appearing, pain improved. patient was instructed to follow up with PMD Time of Eval 1410 Re-Eval Status Improved ED Course Medication(s) Ordered Medication(s) Ordered: Central Nervous System Agents Sig/Caleb Start time Last Medication Dose Route Stop Time Status Admin Ketorolac 15 MG X1ED STA 03/27 1217 DC 03/27 Tromethamine IV 03/27 121 1237 Diagnostic Agents Sig/Caleb Start time Last Medication Dose Route Stop Time Status Admin Iopamidol 100 ML .STK-MED ONE 03/27 1336 DC 03/27 IV 03/27 133 1336 Electrolytic, Caloric, And Nicki Sig/Caleb Start time Last Medication Dose Route Stop Time Status Admin Sodium Chloride 0 ASDIR PRN 03/27 1230 AC IV 03/28 1117 Sodium Chloride 1,000 ML X1ED STA 03/27 1217 DC 03/27 IV 03/27 1316 1238 Gastrointestinal Drugs Sig/Caleb Start time Last Medication Dose Route Stop Time Status Admin Ondansetron HCl 4 MG ONCE PRN 03/27 1230 AC 03/27 IV 04/26 1229 1237 Patient Discharge Departure Vital Signs/Condition Vital Signs First Documented: Result Date Time Pulse Ox 97 03/27 1215 B/P 143/79 03/27 121 B/P Mean 100 03/27 121 O2 Delivery Room air 03/27 121 Temp 36.9 03/27 1215 Pulse 98 03/27 1215 Resp 18 03/27 121 Last Documented: Result Date Time Pulse Ox 97 03/27 1215 B/P 143/79 03/27 1215 B/P Mean 100 03/27 1215 O2 Delivery Room air 03/27 121 Temp 36.9 03/27 1215 Pulse 98 03/27 1215 Resp 18 03/27 121 All vital signs available at the time of this entry have been reviewed. Condition Stable Clinical Impression Clinical Impression Primary Impression: Vomiting Disposition Decision Discharge )( Discharged to Home Yes )( Time 1417 )( Date 03/27/19 Discharge/Care Plan Counseled Regarding Diagnosis, Lab results, Imaging studies, Prescriptions, Need for follow-up, When to return to ED Prescriptions lizzy Discharge Note I have spoken with the patient and/or caregivers. I have explained the patient's condition, diagnoses and treatment plan based on the information available to me at this time. I have answered the patient's and/or caregiver's questions and addressed any concerns. The patient and/or caregivers have as good an understanding of the patient's diagnosis, condition and treatment plan as can be expected at this point. The vital signs have been stable. The patient's condition is stable and appropriate for discharge from the emergency department. The patient will pursue further outpatient evaluation with the primary care physician or other designated or consulting physician as outlined in the discharge instructions. The patient and/or caregivers are agreeable to this plan of care and follow-up instructions have been explained in detail. The patient and/or caregivers have received these instructions in written format and have expressed an understanding of the discharge instructions. The patient and/or caregivers are aware that any significant change in condition or worsening of symptoms should prompt an immediate return to this or the closest emergency department or a call to 911. Quality Measures BP F/U for HTN Referred for BP f/u < 4wk at 1428 RPT #:[id number] END OF REPORT [facility] 2019-01-25 02:54:00 [facility] ([facility]) EMERGENCY PROVIDER REPORT REPORT#:[id number] REPORT STATUS: Signed DATE:01/25/19 TIME: 253 PATIENT: VICTORIANO CABEZAS UNIT #: [id number] ROOM/BED: AGE: 18 SEX: M PCP PHYS: No Primary or Family Physician SERVICE AUTHOR: Gerardo Schroeder MD * ALL edits or amendments must be made on the electronic/computer document * HPI-Chest Pain Under 40 General Confirmed Patient Yes Initial Greet Date/Time 01/25/19 0237 Presentation Chief Complaint Chest pain Hx Obtained From Patient Onset Occurred Today, 1 hr RN VASCULAR Symptom Duration Since onset Progression since Onset Intermittent Location Chest L Quality Painful Radiation Arm L, Shoulder L. )( Migration/Movement None Severity: Onset Moderate Severity: Current Mild Associated with Reports: Shortness of breath. Denies: Cough, productive, Diaphoresis, Fever, Nausea, Palpitations, Vomiting. Free Text HPI Notes Free Text HPI Notes 18 y/o M, with PMHx of headache disorder, presents to the ED c/o intermittent L sided chest pain radiating to L shoulder and LUE onset today approximately 1 hr RN VASCULAR. Pt reports associated SOB. He denies fever, diaphoresis, N/V/D. Pt admits tobacco use. Pt was seen in the ED on 01/21/2019 for N/V/D. Portions of this section were scribed by Zohaib Paul on 01/25/19 at 0407 Risk-Chest Pain Under 40 Risk Stratification )( Coronary Artery Disease Risk factors reviewed, Smoking )( Pulmonary Embolism Risk factors reviewed )( AMI-Aspirin Aspirin Last 24 Hrs Not indicated )( HEART for MACE )( HEART for MACE Response Value History Low index of suspicion 0 ECG Interpretation Normal ECG 0 Age Age under 45 0 Risk Factors for CAD 1-2 CAD risk factors 1 Troponin < or = to NL troponin 0 Total 1 HEART Score for MACE 0-3 (low risk 0.9%-1.7%) Portions of this section were scribed by Zohaib Paul on 01/25/19 at 0302 Review of Systems Focused Review of Systems Constitutional Denies: Chills, Fever, Lethargy. Respiratory Reports: Shortness of breath. Denies: Cough, non-productive, Cough, productive. Cardiovascular Reports: Chest pain. Denies: Edema, Palpitations, Syncope. GI Denies: Abdominal pain, Diarrhea, Nausea, Vomiting. Musculoskeletal Denies: Back pain, Extremity swelling, Neck pain. Skin Denies: Diaphoresis, Rash, Swelling. Neurologic Reports: Numbness (LUE). Denies: Change LOC, Headache, Syncope. Additional Review of Systems Ears/Nose/Throat Denies: Nasal congestion, Sinus problem, Sore throat. Hematologic Denies: Bleeding, Bruising. Portions of this section were scribed by Zohaib Paul on 01/25/19 at 0302 Past Medical History - Adult Stated Complaint LT SHOULDER PAIN Allergies Coded Allergies: No Known Allergies (01/25/19) Home Medications Reported Medications No Known Home Medications Discontinued Reported Medications DESLORATADINE ODT (CLARINEX REDITABS) 5 MG PO DAILY Review of Nursing Notes Rev avail, and agree Past Medical History: Reports: Headache disorder. Past Surgical History: Reports: Appendectomy. Additional Surgical History shoulder, double mastectomy Alcohol Use Denies EtOH use Smoking status for patients 13 years old or older: Current every day smoker Portions of this section were scribed by Zohaib Paul on 01/25/19 at 0407 Physical Exam Vital Signs Vital Signs First Documented: Result Date Time Pulse Ox 99 01/25 0236 B/P 120/81 01/25 0236 B/P Mean 94 01/25 0236 O2 Delivery Room air 01/25 023 Temp 98.1 01/25 0236 Pulse 80 01/25 0236 Resp 20 01/25 0236 Last Documented: Result Date Time Pulse Ox 99 01/25 0236 B/P 120/81 01/25 0236 B/P Mean 94 01/25 0236 O2 Delivery Room air 01/25 023 Temp 98.1 01/25 0236 Pulse 80 01/25 0236 Resp 20 01/25 0236 Review of Vital Signs Reviewed Focused PE General/Const General/Const Awake, Alert, Well developed Eyes Eyes PERRL, No periorbital swelling, No scleral icterus MS Neck Neck No adenopathy, No swelling, No JVD Resp/Chest Respiratory/Chest Breath sounds NL, Breath sounds = bilat, No respiratory distress Cardiovascular Cardiovascular Heart rate NL, Regular rhythm, Heart sounds NL, Pulses = bilaterally Abdomen/GI Abdomen/GI Soft, Non-tender, No guarding, No distention MS Lower Extrem Lower Ext/Pelvis/MS No swelling, Non-tender Skin Skin Color NL, No rash, Warm, Dry Neurologic Neurologic Oriented X3, Speech NL Additional PE Ears/Nose/Throat Ears/Nose/Throat Airway patent, Mucous membranes moist, Pharynx NL Portions of this section were scribed by Zohaib Paul on 01/25/19 at 0302 Interpretation Diagnostics Lab Results Interpretation Results Recent Impressions: RADIOLOGY - XR CHEST 2 V 01/25 0310 Report Impression - Status: SIGNED Entered: 01/25/2019 0339 IMPRESSION: No radiographic evidence of acute cardiopulmonary process. Impression By: Afshan - Alvaro Carcamo M.D. Imaging Statement Radiographic studies reviewed and considered in the medical decision-making. Point of Care Testing Pulse Oximetry Pulse Ox % 99 On: Room air Interpretation Interpreted by me, Pulse oximetry normal Time 0236 ECG #1 Interpretation Text/Dict Note Early repolarization Date 01/25/19 Time 0356 Interpreted by ED physician NL ECG Interpretation Normal rate, Normal sinus rhythm, No STEMI, Normal QRS, Normal ST waves, Normal T waves, Normal axis, Normal intervals Rate 72 Conduction/Liberty Early repolarization Radiography X-Ray Chest View 2 V Interpretation/Wet Read by Interpret - Radiologist Reviewed by ED physician Portions of this section were scribed by Zohaib Pual on 01/25/19 at 0407 Re-Evaluation MDM Re-Evaluation/Progress #1 Time of Re-Eval 0400 Re-Eval Status Improved Pain Re-Evaluation Pain improved Exam Post Tx - General Alert, Vital signs stable Plan Post Re-Eval Plan discharge ED Course Medication(s) Ordered Medication(s) Ordered: Autonomic Drugs Sig/Caleb Start time Last Medication Dose Route Stop Time Status Admin Cyclobenzaprine HCl 10 MG X1ED STA 01/25 0245 DC 01/25 PO 01/25 024 0356 Portions of this section were scribed by Zohaib Paul on 01/25/19 at 0407 Patient Discharge Departure Vital Signs/Condition Vital Signs First Documented: Result Date Time Pulse Ox 99 01/25 0236 B/P 120/81 01/25 0236 B/P Mean 94 01/25 0236 O2 Delivery Room air 01/25 0236 Temp 98.1 01/25 0236 Pulse 80 01/25 0236 Resp 20 01/25 0236 Last Documented: Result Date Time Pulse Ox 99 01/25 0236 B/P 120/81 01/25 0236 B/P Mean 94 01/25 0236 O2 Delivery Room air 01/25 0236 Temp 98.1 01/25 0236 Pulse 80 01/25 0236 Resp 20 01/25 0236 All vital signs available at the time of this entry have been reviewed. Condition Stable Clinical Impression Clinical Impression Primary Impression: Chest wall pain Disposition Decision Discharge )( Discharged to Home Yes )( Time 0404 )( Date 01/25/19 Discharge/Care Plan Counseled Regarding Diagnosis, Imaging studies, Prescriptions, Need for follow- up, Smoking cessation, When to return to ED Prescriptions Flexeril Prescriptions Reviewed Risks, Benefits Quality Measures 12-Lead ECG for CP Performed documented Smoking Cessation Screened, tobacco user, Tobacco cess intervention Supervising Physician Note Scribe Statement Zohaib Paul, 01/25/19 0303, scribing for and in the presence of Dr. Schroeder. Signed By: Zohaib Paul, 01/25/19 0303 Provider Scribed Statement I personally performed the services described in this documentation and reviewed the documentation that was dictated to the scribe(s) in my presence, and it accurately records my words and actions. Gerardo Schroeder, 01/25/19 Portions of this section were scribed by Zohaib Paul on 01/25/19 at 0407 at 0441 RPT #:[id number] END OF REPORT [facility] 2019-01-21 23:25:00 [facility] ([facility]) EMERGENCY PROVIDER REPORT REPORT#:[id number] REPORT STATUS: Signed DATE:01/21/19 TIME: 2324 PATIENT: VICTORIANO CABEZAS UNIT #: [id number] ROOM/BED: AGE: 18 SEX: M PCP PHYS: No Primary or Family Physician SERVICE AUTHOR: Hedy Butler NP * ALL edits or amendments must be made on the electronic/computer document * HPI-Nausea/Vomit/Diarrhea General Confirmed Patient Yes Date/Time Seen by Provider 01/21/19 7337 PCP Marino Presentation Chief Complaint Nausea, Vomiting, Diarrhea, headache Hx Obtained From Patient Onset Occurred Today Vomiting Vomiting 1-3 episodes Diarrhea Diarrhea 4-6 episodes Quality Cramping Severity: Onset Moderate Severity: Current Moderate Associated with Reports: Abdominal pain, Headache. Denies: Blood in stool, Fever. Context Immunization Status General All up to date Free Text HPI Notes Free Text HPI Notes 18 yo male reports frontal headache x 3 days. N/V/D today. Denies fever. States he has nbeen sleeping to alleviate his symptoms Review of Systems ROS Statements All systems rev neg except as marked. Focused Review of Systems Constitutional Denies: Chills, Fever. Ears/Nose/Throat Denies: Earache bilat, Sore throat. GI Reports: Abdominal pain, Diarrhea, Nausea, Vomiting. Denies: Constipation. Skin Denies: Itching, Rash. Past Medical History - Adult Stated Complaint MIGRAINE Allergies Coded Allergies: No Known Allergies (01/16/12) Home Medications Reported Medications DESLORATADINE ODT (CLARINEX REDITABS) 5 MG PO DAILY Past Medical History: Reports: Headache disorder. Past Surgical History: Reports: Appendectomy. Additional Surgical History shoulder Smoking status for patients 13 years old or older: Current every day smoker Physical Exam Vital Signs Vital Signs First Documented: Result Date Time Pulse Ox 98 01/21 2254 B/P 121/79 01/21 2254 B/P Mean 93 01/214 O2 Delivery Room air 01/21 2254 Temp 36.8 01/21 2254 Pulse 109 01/214 Resp 20 01/21 2254 Last Documented: Result Date Time Pulse Ox 98 01/21 2254 B/P 121/79 01/21 2254 B/P Mean 93 01/21 2254 O2 Delivery Room air 01/21 2254 Temp 36.8 01/21 2254 Pulse 109 01/214 Resp 20 01/21 2254 Review of Vital Signs Reviewed Focused PE General/Const General/Const Awake, Alert, No acute distress, Well appearing, Well developed , Well hydrated, Well nourished, Cooperative Eyes Eyes PERRL, EOMI Ears/Nose/Throat Ears/Nose/Throat Airway patent, Mucous membranes moist, Pharynx NL Resp/Chest Respiratory/Chest Breath sounds NL, Breath sounds = bilat, No respiratory distress Cardiovascular Cardiovascular Heart rate NL, Regular rhythm, Heart sounds NL, Cap refill not delayed, Peripheral circulation NL Abdomen/GI Abdomen/GI Soft, Non-tender, No rebound, BS normoactive, No distention MS Back Back Inspection NL, Full range of motion, Painless range of motion Skin Skin Color NL, No rash, Warm, Dry, Intact, Turgor NL, No swelling Neurologic Neurologic Oriented X3, Speech NL, No motor deficits, No sensory deficits, CN II - XII intact Interpretation Diagnostics Lab Results Interpretation Results Laboratory Tests: 01/23 20 Toxicology Urine Opiates Screen (NEGATIVE) NEGATIVE Urine Methadone Screen (NEGATIVE) NEGATIVE Urine Barbiturates (NEGATIVE) NEGATIVE Ur Phencyclidine Scrn (NEGATIVE) NEGATIVE Ur Amphetamines Screen (NEGATIVE) NEGATIVE U Benzodiazepines Scrn (NEGATIVE) NEGATIVE Urine Cocaine Screen (NEGATIVE) NEGATIVE Urine Cannabinoids (NEGATIVE) NEGATIVE Urines Urine Color YELLOW Urine Appearance CLEAR Urine pH (5.0 - 9.0) 5.0 Ur Specific [place] (1.000 - 1.030) 1.020 Urine Protein (NEGATIVE mg/dl) 15 mg/dl H Urine Glucose (UA) (NORMAL mg/dl) NORMAL Urine Ketones (NEGATIVE mg/dl) 15 mg/dl H Urine Blood (NEGATIVE Robert/micL) NEGATIVE Urine Nitrite (NEGATIVE) NEGATIVE Urine Bilirubin (NEGATIVE mg/dL) NEGATIVE Urine Urobilinogen (NORMAL mg/dl) NORMAL Ur Leukocyte Esterase (NEGATIVE Serge/micL) NEGATIVE Urine RBC (0 - 3 RBC/HPF) 0-2 Urine WBC (NONE WBC/HPF) 0-3 Ur Epithelial Cells (0 - 3 EPI/HPF) 0-3 Urine Bacteria (NONE) FEW Urine Mucus 1+ Point of Care Testing Urinalysis Interpretation Positive ketones Pulse Oximetry Pulse Ox % 98 On: Room air Interpretation Interpreted by me, Pulse oximetry normal Time 2256 Re-Evaluation MDM ED Course Medication(s) Ordered Medication(s) Ordered: Antihistamine Drugs Sig/Caleb Start time Last Medication Dose Route Stop Time Status Admin Diphenhydramine HCl 50 MG X1ED STA 01/21 2321 DC 01/21 PO 01/21 2322 2329 Gastrointestinal Drugs Sig/Caleb Start time Last Medication Dose Route Stop Time Status Admin Metoclopramide HCl 10 MG X1ED STA 01/21 2321 DC 01/21 PO 01/21 2322 2329 Ondansetron Base 4 MG X1ED STA 01/21 2321 DC 01/21 PO 01/212 2329 Patient Discharge Departure Vital Signs/Condition Vital Signs First Documented: Result Date Time Pulse Ox 98 01/21 2254 B/P 121/79 01/21 2254 B/P Mean 93 01/214 O2 Delivery Room air 01/21 2254 Temp 36.8 01/21 225 Pulse 109 01/21 2254 Resp 20 01/21 2254 Last Documented: Result Date Time Pulse Ox 98 01/21 2254 B/P 121/79 01/214 B/P Mean 93 01/21 2254 O2 Delivery Room air 01/21 2254 Temp 36.8 01/21 225 Pulse 109 01/21 2254 Resp 20 01/21 2254 All vital signs available at the time of this entry have been reviewed. Condition Improved, Stable Clinical Impression Clinical Impression Primary Impression: Nausea vomiting and diarrhea Secondary Impressions: Headache Disposition Decision Other )( Time 0045 )( Date 01/22/19 Text/Dict Note eloped, left without informing staff Discharge/Care Plan Counseled Regarding Diagnosis, Lab results, Need for follow-up, Smoking cessation at 0058 RPT #:[id number] END OF REPORT [facility] 2019-01-21 23:25:00 [facility] ([facility]) EMERGENCY PROVIDER REPORT REPORT#:[id number] REPORT STATUS: Signed DATE:01/21/19 TIME: 2324 PATIENT: IVCTORIANO CABEZAS UNIT #: [id number] ROOM/BED: AGE: 18 SEX: M PCP PHYS: No Primary or Family Physician SERVICE AUTHOR: Hedy Butler BOTANY PROFESSOR * ALL edits or amendments must be made on the electronic/computer document * Hedy Butler 01/21/195: HPI-Nausea/Vomit/Diarrhea General Confirmed Patient Yes PCP Marino Presentation Chief Complaint Nausea, Vomiting, Diarrhea, headache Hx Obtained From Patient Onset Occurred Today Vomiting Vomiting 1-3 episodes Diarrhea Diarrhea 4-6 episodes Quality Cramping Severity: Onset Moderate Severity: Current Moderate Associated with Reports: Abdominal pain, Headache. Denies: Blood in stool, Fever. Context Immunization Status General All up to date Free Text HPI Notes Free Text HPI Notes 18 yo male reports frontal headache x 3 days. N/V/D today. Denies fever. States he has nbeen sleeping to alleviate his symptoms Review of Systems ROS Statements All systems rev neg except as marked. Focused Review of Systems Constitutional Denies: Chills, Fever. Ears/Nose/Throat Denies: Earache bilat, Sore throat. GI Reports: Abdominal pain, Diarrhea, Nausea, Vomiting. Denies: Constipation. Skin Denies: Itching, Rash. Past Medical History - Adult Stated Complaint MIGRAINE Allergies Coded Allergies: No Known Allergies (01/16/12) Home Medications Reported Medications DESLORATADINE ODT (CLARINEX REDITABS) 5 MG PO DAILY Past Medical History: Reports: Headache disorder. Past Surgical History: Reports: Appendectomy. Additional Surgical History shoulder Smoking status for patients 13 years old or older: Current every day smoker Physical Exam Vital Signs Vital Signs First Documented: Result Date Time Pulse Ox 98 01/214 B/P 121/79 01/214 B/P Mean 93 01/214 O2 Delivery Room air 01/21 2254 Temp 36.8 01/21 2254 Pulse 109 01/21 2254 Resp 20 01/21 2254 Last Documented: Result Date Time Pulse Ox 98 01/21 2254 B/P 121/79 01/21 2254 B/P Mean 93 01/214 O2 Delivery Room air 01/21 2254 Temp 36.8 01/21 2254 Pulse 109 01/21 2254 Resp 20 01/21 2254 Review of Vital Signs Reviewed Focused PE General/Const General/Const Awake, Alert, No acute distress, Well appearing, Well developed , Well hydrated, Well nourished, Cooperative Eyes Eyes PERRL, EOMI Ears/Nose/Throat Ears/Nose/Throat Airway patent, Mucous membranes moist, Pharynx NL Resp/Chest Respiratory/Chest Breath sounds NL, Breath sounds = bilat, No respiratory distress Cardiovascular Cardiovascular Heart rate NL, Regular rhythm, Heart sounds NL, Cap refill not delayed, Peripheral circulation NL Abdomen/GI Abdomen/GI Soft, Non-tender, No rebound, BS normoactive, No distention MS Back Back Inspection NL, Full range of motion, Painless range of motion Skin Skin Color NL, No rash, Warm, Dry, Intact, Turgor NL, No swelling Neurologic Neurologic Oriented X3, Speech NL, No motor deficits, No sensory deficits, CN II - XII intact Interpretation Diagnostics Lab Results Interpretation Results Laboratory Tests: 01/23 20 Toxicology Urine Opiates Screen (NEGATIVE) NEGATIVE Urine Methadone Screen (NEGATIVE) NEGATIVE Urine Barbiturates (NEGATIVE) NEGATIVE Ur Phencyclidine Scrn (NEGATIVE) NEGATIVE Ur Amphetamines Screen (NEGATIVE) NEGATIVE U Benzodiazepines Scrn (NEGATIVE) NEGATIVE Urine Cocaine Screen (NEGATIVE) NEGATIVE Urine Cannabinoids (NEGATIVE) NEGATIVE Urines Urine Color YELLOW Urine Appearance CLEAR Urine pH (5.0 - 9.0) 5.0 Ur Specific [place] (1.000 - 1.030) 1.020 Urine Protein (NEGATIVE mg/dl) 15 mg/dl H Urine Glucose (UA) (NORMAL mg/dl) NORMAL Urine Ketones (NEGATIVE mg/dl) 15 mg/dl H Urine Blood (NEGATIVE Robert/micL) NEGATIVE Urine Nitrite (NEGATIVE) NEGATIVE Urine Bilirubin (NEGATIVE mg/dL) NEGATIVE Urine Urobilinogen (NORMAL mg/dl) NORMAL Ur Leukocyte Esterase (NEGATIVE Serge/micL) NEGATIVE Urine RBC (0 - 3 RBC/HPF) 0-2 Urine WBC (NONE WBC/HPF) 0-3 Ur Epithelial Cells (0 - 3 EPI/HPF) 0-3 Urine Bacteria (NONE) FEW Urine Mucus 1+ Point of Care Testing Urinalysis Interpretation Positive ketones Pulse Oximetry Pulse Ox % 98 On: Room air Interpretation Interpreted by me, Pulse oximetry normal Time 225 Re-Evaluation MDM ED Course Medication(s) Ordered Medication(s) Ordered: Antihistamine Drugs Sig/Caleb Start time Last Medication Dose Route Stop Time Status Admin Diphenhydramine HCl 50 MG X1ED STA 01/21 2321 DC 01/21 PO 01/21 2322 2329 Gastrointestinal Drugs Sig/Caleb Start time Last Medication Dose Route Stop Time Status Admin Metoclopramide HCl 10 MG X1ED STA 01/21 2321 DC 01/21 PO 01/21 2322 2329 Ondansetron Base 4 MG X1ED STA 01/21 2321 DC 01/21 PO 01/21 2322 2329 Patient Discharge Departure Vital Signs/Condition Vital Signs First Documented: Result Date Time Pulse Ox 98 01/21 2254 B/P 121/79 01/21 2254 B/P Mean 93 01/21 2254 O2 Delivery Room air 01/21 2254 Temp 36.8 01/21 2254 Pulse 109 01/21 2254 Resp 20 01/214 Last Documented: Result Date Time Pulse Ox 98 01/21 2254 B/P 121/79 01/21 2254 B/P Mean 93 01/21 2254 O2 Delivery Room air 01/21 2254 Temp 36.8 01/21 2254 Pulse 109 08 2254 Resp 20 01/21 2254 All vital signs available at the time of this entry have been reviewed. Condition Improved, Stable Clinical Impression Clinical Impression Primary Impression: Nausea vomiting and diarrhea Secondary Impressions: Headache Disposition Decision Other )( Time 0045 )( Date 01/22/19 Text/Dict Note eloped, left without informing staff Discharge/Care Plan Counseled Regarding Diagnosis, Lab results, Need for follow-up, Smoking cessation Clark Culp 01/22/19 0104: HPI-Nausea/Vomit/Diarrhea General Date/Time Seen by Provider 01/21/19 3075 Patient Discharge Departure Supervising Physician Note MidLv Saw Pt Alone I have reviewed the PA/BOTANY PROFESSOR's note and plan of care. I was available for consultation as needed at all times during the patient's visit in the emergency department. I agree with the clinical impression, plan and disposition. at 0058 at 0104 RPT #:[id number] END OF REPORT [facility]
[2024-09-11 18:13] LABS: Specific Gravity 1.011 (1.005-1.030); Urine Bilirubin NEGATIVE (Negative); Urine Blood Negative (Negative); Urine Clarity Clear (Clear); Urine Color Colorless (Yellow); Urine Glucose NEGATIVE (Negative); Urine Ketones NEGATIVE (Negative); Urine Microscopic Reflex YN NO UMIC; Urine Nitrite NEGATIVE (Negative); Urine Protein NEGATIVE (Negative); Urine Urobilinogen Normal (Normal)
--- NOTE | 2024-09-11 18:14 | RAD REPORT ---
Procedure: Chest Single View HISTORY: Chest pain COMPARISON: 2020 FINDINGS: The lungs appear clear of acute infiltrate. No significant pleural effusion noted. The heart is normal size. IMPRESSION: No acute abnormality is displayed.
--- NOTE | 2024-09-11 19:03 | RAD REPORT ---
EXAM: Abdominal exam Limited ultrasound CLINICAL HISTORY: Abdominal pain COMPARISON: None FINDINGS: A gallstone is not seen. Gallbladder wall not thickened. Biliary tree normal caliber IMPRESSION: No significant abnormalities displayed
--- NOTE | 2024-09-11 19:23 | EDPHYS ---
Physician Documentation [facility] Name: Dawson Cabezas Age: 24 yrs Sex: Male : 2000 Arrival Date: 09/11/2024 Time: 16:57 Bed DX3 Private MD: ED Physician Rigo Edmondson HPI: 09/11 20:08 This 24 yrs old Male presents to ER via Ambulatory with complaints of Back kb Pain. 20:08 Patient is a 24-year-old male who presents for pain to right upper quadrant/lower chest kb that radiates to the back and to shoulder. States pain is only present with deep inspiration. Denies injury or trauma. States this started 4 days ago and is only gotten worse so decided to come in for evaluation. Denies cough, congestion, fever, nausea, vomiting, diarrhea. Historical: - Allergies: 17:05 No Known Allergies; ap3 - Home Meds: 17:05 None [Active]; ap3 - PMHx: 17:05 None; ap3 - PSHx: 17:05 double mastectomy; ap3 - Immunization history:: Client reports having NOT received the Covid vaccine. Flu vaccine is not up to date. - Infectious Disease History:: Denies. - Social history:: Smoking status: Patient reports the use of cigarette tobacco products, Reported history of juuling and/or vaping. ROS: 20:08 Constitutional: As per HPI kb Exam: 20:08 Constitutional: This is a well developed, well nourished patient who is awake, alert, kb and in no acute distress. Head/Face: Normocephalic, atraumatic. ENT: Moist Mucous membranes Cardiovascular: Regular rate Respiratory: Respirations even and unlabored. No increased work of breathing. Talking in full sentences Abdomen/GI: Soft, non-tender. No distention Back: No spinal tenderness. No costovertebral tenderness. Full range of motion. Skin: Warm, dry with normal turgor. Normal color. MS/ Extremity: Pulses equal, no cyanosis. Neurovascular intact. Full, normal range of motion. Neuro: Awake and alert, GCS 15, oriented to person, place, time, and situation. Vital Signs: 17:04 BP 122 / 76; Pulse 84; Resp 17; Temp 98.8(O); Pulse Ox 100% on R/A; Weight 122.47 kg; ap3 Height 5 ft. 11 in. ; Pain 7/10; 19:54 BP 121 / 73; Pulse 68; Resp 17 S; Pulse Ox 100% on R/A; ha1 17:04 Body Mass Index 37.66 (122.47 kg, 180.34 cm) ap3 17:04 Pain Scale: Adult ap3 MDM: 17:01 Medical Screening Exam initiated kb 20:09 Differential diagnosis: Pleurisy, costochondritis, cholelithiasis, UTI, kidney stone, kb pneumonia. Data reviewed: vital signs, nurses notes. Test considered but Not performed: Labs: CBC, CMP, lipase considered but patient has no abdominal tenderness. Counseling: I had a detailed discussion with the patient and/or guardian regarding the historical points, exam findings, and any diagnostic results supporting the discharge/admit diagnosis, lab results, radiology results, the need for outpatient follow up, a family practitioner, to return to the emergency department if symptoms worsen or persist or if there are any questions or concerns that arise at home. 09/11 17:09 Order name: Urinalysis w/ reflexes; Complete Time: 18:14 kb 09/11 17:09 Order name: US Abdomen Limited; Complete Time: 19:17 kb 09/11 17:09 Order name: Chest Single View XRAY; Complete Time: 18:15 kb Administered Medications: 19:38 Drug: Dexamethasone IM 10 mg IM once Route: IM; Site: right deltoid; ha1 19:53 Follow up: Response: No adverse reaction; Marked relief of symptoms ha1 19:38 Drug: Ketorolac IM 30 mg IM once Route: IM; Site: right deltoid; ha1 19:53 Follow up: Response: No adverse reaction; Pain is decreased ha1 Disposition: 09/12 14:38 Co-signature as Attending Physician, Rigo Edmondson MD I agree with the assessment and suri plan of care. Disposition Summary: 09/11/24 19:22 Discharge Ordered Notes: Location: Home Condition: Stable kb Diagnosis - Chest pain on breathing kb Followup: kb - With: Emergency Department - When: As needed - Reason: Worsening of condition Followup: kb - With: Private Physician - When: 2 - 3 days - Reason: Recheck today's complaints, Continuance of care, Re-evaluation by your physician Discharge Instructions: - Discharge Summary Sheet kb - Costochondritis, [id number] kb - Pleurisy, [id number] kb Forms: - Work release form kb - Medication Reconciliation Form kb - Antibiotic Education kb - Prescription Opioid Use kb - Patient Portal Instructions kb - Leadership Thank You Letter kb Prescriptions: - Diclofenac Sodium 75 mg Oral tablet, delayed release (enteric coated) - take 1 tablet ORAL route 2 times per day As needed; 30 tablet; Refills: 0, kb Product Selection Permitted Signatures: Dispatcher [employer] EDMary Woody, MANAGER PSYCHOLOGY-C MANAGER PSYCHOLOGY-Rigo Ruiz MD MD cha Prokisch, Amanda RN RN ap3 Gracia Nascimento RN RN ha1 Corrections: (The following items were deleted from the chart) 09/11 17:10 17:10 Chest Single View+[email or web address] ordered. [facility]
--- NOTE | 2024-09-11 19:23 | ER ---
Nurse's Notes [facility] Name: Dawson Cabezas Age: 24 yrs Sex: Male : 2000 Arrival Date: 09/11/2024 Time: 16:57 Bed DX3 Private MD: Diagnosis: Chest pain on breathing Presentation: 09/11 17:04 Chief complaint: Patient states: he started having right sided abdominal pain that ap3 radiates into his right lower back and up into his right upper back. patient reports this started Tuesday09/08/24. patient currently rates his pain as a 7/10 on the pain scale. Coronavirus screen: At this time, the client does not indicate any symptoms associated with coronavirus-19. Ebola Screen: No symptoms or risks identified at this time. Initial Sepsis Screen: Does the patient meet any 2 criteria? No. Patient's initial sepsis screen is negative. Does the patient have a suspected source of infection? No. Patient's initial sepsis screen is negative. Risk Assessment: Do you want to hurt yourself or someone else? Patient reports no desire to harm self or others. Onset of symptoms was September 08, 2024. 17:04 Method Of Arrival: Ambulatory ap3 17:04 Acuity: MARIA INES 3 ap3 Triage Assessment: 17:06 General: Appears in no apparent distress. Behavior is calm, cooperative, appropriate ap3 for age. Pain: Complains of pain in back and abdomen Pain currently is 7 out of 10 on a pain scale. Pain began 2-3 days ago. Neuro: Level of Consciousness is awake, alert, obeys commands, Oriented to person, place, time, situation, Appropriate for age. Cardiovascular: Patient's skin is warm and dry. Respiratory: Airway is patent Respiratory effort is even, unlabored, Respiratory pattern is regular, symmetrical. Historical: - Allergies: 17:05 No Known Allergies; ap3 - Home Meds: 17:05 None [Active]; ap3 - PMHx: 17:05 None; ap3 - PSHx: 17:05 double mastectomy; ap3 - Immunization history:: Client reports having NOT received the Covid vaccine. Flu vaccine is not up to date. - Infectious Disease History:: Denies. - Social history:: Smoking status: Patient reports the use of cigarette tobacco products, Reported history of juuling and/or vaping. Screenin:06 Abuse screen: Denies threats or abuse. Nutritional screening: No deficits noted. ap3 Tuberculosis screening: No symptoms or risk factors identified. 19:54 [facility] ED Fall Risk Assessment (Adult) History of falling in the last 3 months, ha1 including since admission No falls in past 3 months (0 pts) Confusion or Disorientation No (0 pts) Intoxicated or Sedated No (0 pts) Impaired Gait No (0 pts) Mobility Assist Device Used No (0 pt) Altered Elimination No (0 pt) Score/Fall Risk Level 0 - 2 = Low Risk Oriented to surroundings, Maintained a safe environment, Educated pt \T\ family on fall prevention, incl call for assistance when getting out of bed, Hourly rounding (assess needs \T\ fall precautionary measures) done. Assessment: 19:54 Reassessment: Patient and/or family updated on plan of care and expected duration. Pain ha1 level reassessed. Patient is alert, oriented x 3, equal unlabored respirations, skin warm/dry/pink. Patient states feeling better. Patient states symptoms have improved. Vital Signs: 17:04 BP 122 / 76; Pulse 84; Resp 17; Temp 98.8(O); Pulse Ox 100% on R/A; Weight 122.47 kg; ap3 Height 5 ft. 11 in. ; Pain 7/10; 19:54 BP 121 / 73; Pulse 68; Resp 17 S; Pulse Ox 100% on R/A; ha1 17:04 Body Mass Index 37.66 (122.47 kg, 180.34 cm) ap3 17:04 Pain Scale: Adult ap3 ED Course: 16:59 Patient arrived in ED. al6 17:01 Mary Cabezas FNP-C is PHCP. kb 17:01 Rigo Edmondson MD is Attending Physician. kb 17:05 Triage completed. ap3 17:07 Arm band placed on right wrist. ap3 17:44 Urinalysis w/ reflexes Sent. bc6 17:52 Chest Single View XRAY In Process Unspecified. EDMS 18:37 US Abdomen Limited In Process Unspecified. EDMS 19:00 Patient has correct armband on for positive identification. Bed in low position. Call ha1 light in reach. Side rails up X 1. Adult w/ patient. 19:55 Provided Education on: follow ups . ha1 19:55 No provider procedures requiring assistance completed. Patient did not have IV access ha1 during this emergency room visit. Administered Medications: 19:38 Drug: Dexamethasone IM 10 mg IM once Route: IM; Site: right deltoid; ha1 19:53 Follow up: Response: No adverse reaction; Marked relief of symptoms ha1 19:38 Drug: Ketorolac IM 30 mg IM once Route: IM; Site: right deltoid; ha1 19:53 Follow up: Response: No adverse reaction; Pain is decreased ha1 Medication: 19:55 VIS not applicable for this client. ha1 Outcome: 19:22 Discharge ordered by . scott 19:55 Discharged to home ambulatory, with family, ha1 19:55 Condition: stable 19:55 Discharge instructions given to patient, Instructed on discharge instructions, follow up and referral plans. medication usage, Demonstrated understanding of instructions, follow-up care, medications, Prescriptions given X 1, 19:56 Patient left the ED. ha1 Signatures: Dispatcher [employer] EDMS Mary Cabezas, RENE-C TELEVISION INSPECTOR-Kerline Hare RN RN ap3 Gracia Nascimento RN RN ha1 Laura Ivey bc6 Kathryn Moon al6
[2024-09-11] MEDS ORDERED: KETOROLAC 30 MG/ML INJ ONE (19:24)
[2024-09-11] MEDS ORDERED: dexAMETHasone 10 MG/ML VIAL ONE (19:25)
[2024-09-11 20:53] VITALS: TEMP 98.8; O2SAT 100
[2024-09-11 20:55] VITALS: BP 121/73
== END 2024-09-11 19:56 | disposition home or self-care (01) ==
LOC: ER 16:57
DX: R07.1 Chest pain on breathing (principal); R10.11 Right upper quadrant pain; Z72.0 Tobacco use; Z28.310 Unvaccinated for COVID-19
CPT/HCPCS: 81003; 71045; 76705; 96372; 99284; J1100